=== PATIENT | female | born 1985 ===

== ENCOUNTER 2017-06-19 17:02 | Emergency (ER) | payer SELFPAY ==
[2017-06-19 18:04] VITALS: RESP 16
[2017-06-19 19:06] LABS: RBC URINE 2 /hpf (0-3); URINE BACTERIA FEW (<OCC); URINE BILIRUBIN NEGATIVE (NEGATIVE); URINE BLOOD NEGATIVE (NEGATIVE); URINE COLOR Yellow (YELLOW); URINE GLUCOSE (UA) NORMAL (Normal); URINE KETONE NEGATIVE (NEGATIVE); URINE LEUKOCYTE ESTERASE 2+ Leu/uL (Negative); URINE PROTEIN NEGATIVE (NEGATIVE); WBC URINE 31 /hpf (0-5)
--- NOTE | 2017-06-19 19:17 | C.PDOC ---
History Of Present Illness 32 year old female with Hx of asthma presents to the ED c/o CP when coughing with some clear green sputum since yesterday, patient admits to being an occasional smoker. Patient also c/o left upper back pain when coughing as well as aching epigastric pain associated with mild nausea that started yesterday. Patient's LMP was on Saturday only lasted one day, she reports using a home test that came back negative. Patient denies vomit, diarrhea, fever, SOB. Chief Complaint (Nursing): Chest Pain History Per: Patient History/Exam Limitations: no limitations Onset/Duration Of Symptoms: Days Current Symptoms Are (Timing): Still Present Quality: "Pain" Associated Symptoms: Other (Cough) Exacerbating Factors: Other (Coughing) Recent travel outside of the [place]: No Additional History Per: Patient Past Medical History Reviewed: Historical Data, Nursing Documentation, Vital Signs Vital Signs: Last Vital Signs Temp 97.3 F L 06/19/17 20:17 Pulse 83 06/19/17 20:17 Resp 16 06/19/17 20:17 BP 104/63 06/19/17 20:17 Pulse Ox 99 06/22/17 11:42 - Medical History PMH: Asthma Denies: HIV, HTN, Seizures, Sexually Transmitted Disease Surgical History: No Surg Hx Family History: States: Unknown Family Hx - Social History Hx Tobacco Use: Yes Hx Alcohol Use: Yes Hx Substance Use: No (PCP monthly) - Immunization History Hx Tetanus Toxoid Vaccination: No Hx Influenza Vaccination: No Hx Pneumococcal Vaccination: No Review Of Systems Constitutional: Negative for: Fever, Chills Cardiovascular: Positive for: Chest Pain. Negative for: Palpitations Respiratory: Positive for: Cough, Sputum (Clear, green). Negative for: Shortness of Breath Gastrointestinal: Positive for: Nausea, Abdominal Pain. Negative for: Vomiting Genitourinary: Negative for: Dysuria Musculoskeletal: Positive for: Back Pain (Left upper) Skin: Negative for: Rash Neurological: Negative for: Weakness, Numbness Physical Exam - Physical Exam Appears: Non-toxic, No Acute Distress Skin: Normal Color, Warm, Dry Head: Atraumatic, Normacephalic Nose: No Discharge Oral Mucosa: Moist Throat: Normal, No Erythema, No Exudate Neck: Supple Chest: Symmetrical Cardiovascular: Rhythm Regular, No Murmur Respiratory: Wheezing (Occasional inspiratory ) Gastrointestinal/Abdominal: Soft, Tenderness (Mild left flank, epigastric), No Distention, No Guarding, No Rebound Back: No CVA Tenderness Extremity: Normal ROM, No Deformity, No Swelling Neurological/Psych: Oriented x3, Normal Speech, Normal Cognition ED Course And Treatment - Laboratory Results Result Diagrams: 06/19/17 19:30 06/19/17 19:30 O2 Sat by Pulse Oximetry: 99 (On RA) Pulse Ox Interpretation: Normal Medical Decision Making Medical Decision Making: Plan: * Blood work ordered * UA ordered * Albuterol 2.5 mg INH given * Pepcid 20 mg IVP given * Zofran 4 mf IVP given Re-evaluation: lungs cta, on re-exam. pt now with tenderness in ruq, ultrasound ordered. pt reports she can't stay for ultrasound, signing out ama, understands risks and consequences. pt will be discharged with albuterol mdi, cipro for uti and pmd f/u Disposition Counseled Patient/Family Regarding: Studies Performed, Diagnosis, Need For Followup, Rx Given - Disposition Referrals: [facility] [Outside] [facility] [Outside] Disposition: AGAINST MEDICAL ADVICE Disposition Time: 21:43 Condition: STABLE Additional Instructions: Please follow up in medical clinic for further evaluation as soon as possible. Avoid fatty foods. USe albuterol if needed. Take antibiotics for urine infection as prescribed.. Prescriptions: Albuterol HFA [Ventolin HFA 90 mcg/actuation (8 g)] 2 puff IH Q6 #1 inhaler Ciprofloxacin HCl [Cipro] 500 mg PO BID #6 tab Instructions: Urinary Tract Infection in Women (ED), Upper Respiratory Infection (ED) Forms: General Discharge Instructions, [facility] (Sri [place]ankan), Work Excuse - Clinical Impression Clinical Impression: UTI (lower urinary tract infection), Upper respiratory infection, Abdominal pain, Left against medical advice - PA / IMPLEMENTATION ANALYST / Resident Statement MD/DO has reviewed & agrees with the documentation as recorded. - Scribe Statement The provider has reviewed the documentation as recorded by the Scribe Humble Montejo All medical record entries made by the Scribe were at my direction and personally dictated by me. I have reviewed the chart and agree that the record accurately reflects my personal performance of the history, physical exam, medical decision making, and the department course for this patient. I have also personally directed, reviewed, and agree with the discharge instructions and disposition.
[2017-06-19] MEDS ORDERED: Albuterol 0.083% Inhal Sol (2.5 mg/3 mL) UD INH STA (19:21)
[2017-06-19] MEDS ORDERED: Albuterol-Ipratrop 3 mg / 0.5 (3 ml) UD ONE (19:30)
[2017-06-19 19:41] LABS: BASO # 0.1 K/uL (0.0-0.2); EOS # 0.1 K/uL (0.0-0.7); EOS % 1.7 % (0.0-4.0); HEMATOCRIT 39.4 % (34.0-47.0); LYMPH # 2.8 K/uL (1.0-4.3); LYMPH % 33.1 % (20.0-40.0); MEAN CELL VOLUME 85.1 fL (81.0-99.0); MEAN CORPUSCULAR HEMOGLOBIN 27.7 pg (27.0-31.0); MEAN CORPUSCULAR HGB CONC 32.5 g/dL (33.0-37.0); MEAN PLATELET VOLUME 9.4 fL (7.2-11.7); MONO # 0.5 K/uL (0.0-0.8); MONO % 5.4 % (0.0-10.0); NRBC % 0.1 % (0.0-2.0); RED CELL DISTRIBUTION WIDTH 13.7 % (11.5-14.5); WHITE BLOOD COUNT 8.3 K/uL (4.8-10.8)
[2017-06-19 20:02] LABS: ALB/GLOB RATIO 1.2 (1.0-2.1); ALKALINE PHOSPHATASE 62 U/L (38-126); ALT/SGPT 31 U/L (9-52); AST/SGOT 29 U/L (14-36); BILIRUBIN,TOTAL 0.7 mg/dL (0.2-1.3); BLOOD UREA NITROGEN 14 mg/dL (7-17); CALCIUM 8.3 mg/dl (8.6-10.4); CARBON DIOXIDE 23 mmol/L (22-30); CHLORIDE 103 mmol/L (98-107); GFR AFRICAN-AMERICAN > 60; GLUCOSE,RANDOM 71 mg/dL (65-105); POTASSIUM 3.8 mmol/L (3.6-5.2); SODIUM 133 mmol/L (132-148); TOTAL PROTEIN 7.8 g/dL (6.3-8.3)
[2017-06-19 20:18] VITALS: BP 104/63; PULSE 83; TEMP 97.3
[2017-06-19 21:42] VITALS: O2SAT 99
--- NOTE | 2017-06-20 08:43 | RAD ---
HISTORY: cough wheeze and pain left upper field COMPARISON: No prior. TECHNIQUE: Chest PA and lateral FINDINGS: LUNGS: No active pulmonary disease. PLEURA: No significant pleural effusion identified. No pneumothorax apparent. CARDIOVASCULAR: Normal. OSSEOUS STRUCTURES: No significant abnormalities. VISUALIZED UPPER ABDOMEN: Normal. OTHER FINDINGS: None. IMPRESSION: No active disease.
--- NOTE | 2017-06-20 21:49 | CARD ---
APPROVED REPORT EKG Measurement Heart [id number] <Conclusion> Normal sinus rhythm with sinus arrhythmia Septal infarct, age undetermined Abnormal ECG
== END 2017-06-19 21:58 | disposition left against medical advice (07) ==
LOC: C.ER 17:02
DX: N39.0 Urinary tract infection, site not specified (principal); J06.9 Acute upper respiratory infection, unspecified; Z72.0 Tobacco use; R10.13 Epigastric pain
CPT/HCPCS: 71020; 80053; 81001; 84702; 84703; 85025; 93005; 96374; 96375; 99285; J2405

== ENCOUNTER 2017-11-08 18:19 | Observation (INO) | payer MEDICAID ==
[2017-11-08 18:42] VITALS: BMI 33.1
[2017-11-08 19:01] LABS: BASO % 0.4 % (0.0-2.0); EOS % 0.4 % (0.0-4.0); LYMPH # 2.3 K/uL (1.0-4.3); LYMPH % 22.9 % (20.0-40.0); MEAN CELL VOLUME 84.6 fL (81.0-99.0); MEAN CORPUSCULAR HGB CONC 33.1 g/dL (33.0-37.0); MEAN PLATELET VOLUME 9.6 fL (7.2-11.7); MONO # 0.5 K/uL (0.0-0.8); MONO % 5.2 % (0.0-10.0); NEUT # 7.2 K/uL (1.8-7.0); NEUT % 71.1 % (50.0-75.0); RBC 4.29 Mil/uL (3.80-5.20); RED CELL DISTRIBUTION WIDTH 13.9 % (11.5-14.5); WHITE BLOOD COUNT 10.1 K/uL (4.8-10.8)
[2017-11-08 19:10] LABS: PROTHROMBIN TIME 11.7 SECONDS (9.7-12.2)
[2017-11-08 19:15] LABS: ALBUMIN 3.9 g/dL (3.5-5.0); ALT/SGPT 16 U/L (9-52); AST/SGOT 24 U/L (14-36); BLOOD UREA NITROGEN 11 mg/dL (7-17); CALCIUM 8.9 mg/dl (8.6-10.4); GFR AFRICAN-AMERICAN > 60; GFR NON-AFRICAN AMERICAN > 60
--- NOTE | 2017-11-08 19:24 | C.PDOC ---
History Of Present Illness 32-year-old female, presents to the ED with products of conception in a jar. Patient is s/p spontaneous miscarriage of 12 week . On arrival, pelvic exam shows blood and clots, which were removed with forceps. Case immediately discussed with OB on-call, Dr. Palacio. Time Seen by Provider: 11/08/17 18:40 Chief Complaint (Nursing): Female Genitourinary History Per: Patient History/Exam Limitations: no limitations Onset/Duration Of Symptoms: Hrs Current Symptoms Are (Timing): Still Present Abnormal Vaginal Bleeding: Yes : 2 Para: 1 Past Medical History Reviewed: Historical Data, Nursing Documentation, Vital Signs Vital Signs: Last Vital Signs Temp 97.6 F 11/08/17 20:21 Pulse 88 11/08/17 21:12 Resp 24 11/08/17 21:12 BP 100/54 L 11/08/17 21:12 Pulse Ox 100 11/08/17 21:33 - Medical History PMH: Asthma Denies: HIV, HTN, Seizures, Sexually Transmitted Disease Other Surgeries: DNC Family History: States: Unknown Family Hx - Social History Hx Tobacco Use: Yes Hx Alcohol Use: No Hx Substance Use: No (PCP monthly) - Immunization History Hx Tetanus Toxoid Vaccination: No Hx Influenza Vaccination: No Hx Pneumococcal Vaccination: No Review Of Systems Except As Marked, All Systems Reviewed And Found Negative. Cardiovascular: Negative for: Chest Pain Respiratory: Negative for: Shortness of Breath Gastrointestinal: Positive for: Abdominal Pain Genitourinary: Positive for: Vaginal Bleeding Physical Exam - Physical Exam Appears: In Acute Distress (mild distress), Other (Obese female) Skin: Warm, Dry Head: Atraumatic, Normacephalic Eye(s): bilateral: PERRL, EOMI Nose: Normal Oral Mucosa: Moist Neck: Normal ROM Chest: Symmetrical Cardiovascular: Rhythm Regular, No Murmur Respiratory: Normal Breath Sounds, No Rales, No Rhonchi, No Wheezing Gastrointestinal/Abdominal: Soft, No Tenderness, No Distention Pelvic: Vaginal Bleeding (with clots) Extremity: Bilateral: Atraumatic, Normal Color And Temperature Neurological/Psych: Oriented x3, Normal Speech ED Course And Treatment - Laboratory Results Result Diagrams: 11/08/17 18:56 11/08/17 18:56 Lab Interpretation: Normal (QHCG 94,418 H, O+,) O2 Sat by Pulse Oximetry: 100 (RA) Pulse Ox Interpretation: Normal - CT Scan/US Transvag US Other Rad Studies (CT/US): Read By Radiologist, Radiology Report Reviewed CT/US Interpretation: IMPRESSION: Abnormally thickened and vascularized endometrium. In the clinical setting of recent /miscarriage, this indicates retained products of conception. 2. Complex follicle in the right ovary may represent a corpus luteum cyst. No suspicious features. Reevaluation Time: 21:34 Reassessment Condition: Improved - Physician Consult Information Outcome Of Conversation: 1844, 2129, d/w Dr. Palacio, [employer] Guide Escort, much appreciated immediate ED assistance, and pelvic exam. pt stabilized and vag bleeding improved. OK to Tele Obs. Plan repeat CBC (suspect dilutional anemia) . 2nd miscarraige in 2nd trimester suspicious for underlying pathology, consider high-risk OB w/u for future pregnancies. Critical Care Time - Critical Care Note Total Time (in mins): 90 Documented critical care: time excludes all time spent performing seperately billable procedures. Medical Decision Making Medical Decision Making: Impression: Spontaneous miscarriage Ordered labs and transvaginal ultrasound. Patient became acutely hypotensive in the ER, and received 4L of NS On further discussion, patient is with 1 prior miscarriage, that occurred at approximately 20 weeks. She has an 11 y/o child at home. Disposition Doctor Will See Patient In The: Hospital Counseled Patient/Family Regarding: Studies Performed, Diagnosis - Disposition Disposition: HOSPITALIZED Disposition Time: 21:36 Condition: GOOD Forms: [facility] (Albanian) - Clinical Impression Clinical Impression: Spontaneous - Scribe Statement The provider has reviewed the documentation as recorded by the Scribe (Radha Juarez) Provider Attestation: All medical record entries made by the Scribe were at my direction and personally dictated by me. I have reviewed the chart and agree that the record accurately reflects my personal performance of the history, physical exam, medical decision making, and the department course for this patient. I have also personally directed, reviewed, and agree with the discharge instructions and disposition.
[2017-11-08] MEDS ORDERED: Sodium Chloride 0.9% 1,000 ML IV ONE ×4 (20:08→20:38)
--- NOTE | 2017-11-08 21:02 | US ---
EXAM: US Pelvis Complete, Transabdominal CLINICAL HISTORY: 32 years old, female; Signs and symptoms; Other: Vag bleed; Additional info: Passed poc @ 12 weeks, ? retained poc TECHNIQUE: Real-time transabdominal pelvic ultrasound (complete) with image documentation. COMPARISON: No relevant prior studies available. FINDINGS: Uterus/cervix: The uterus measures 12.6 x 7.4 x 7.6 cm. Endometrial stripe measures 3 cm. Endometrial stripe is heterogeneous Right ovary: The right ovary measures 3.7 x 3.6 x 3.8 cm and contains a complex follicle measuring 2.7 cm in maximum diameter. Blood flow is seen in the right ovary on pulsed Doppler examination. Left ovary: The left ovary measures 3.2 x 1.6 x 2.5 cm. Blood flow is seen in the left ovary on pulsed Doppler examination. Free fluid: No free fluid. Bladder: Unremarkable as visualized. Wall is normal thickness for degree of distention. IMPRESSION: Abnormally thickened endometrial stripe. In the clinical setting of a recent /miscarriage, retained products of conception should be considered. EXAM: US Pelvis, Transvaginal EXAM DATE/TIME: Exam ordered 11/08/2017 6:41 PM CLINICAL HISTORY: 32 years old, female; Signs and symptoms; Other: Vag bleed; Additional info: Passed poc @ 12 weeks, ? retained poc TECHNIQUE: Real-time transvaginal pelvic ultrasound (complete) with image documentation. Transvaginal imaging was used for better evaluation of the endometrium and adnexa. COMPARISON: PELVIS/TRANSVAG US 2015-10-02 20:21 FINDINGS: Uterus/cervix: Endometrial stripe is heterogeneous in appearance and measures 4.1 cm in thickness. A small amount of fluid is noted in the endocervical canal. No myometrial mass. Right ovary: The right ovary measures 5.3 x 3.2 x 3.7 cm and contains a complex follicle measuring 3.6 cm in maximum diameter. Blood flow is seen in the right ovary on color Doppler examination. Left ovary: The left ovary measures 3.1 x 1.6 x 2.8 cm. Blood flow is seen in the left ovary on color Doppler and pulse Doppler examination. Free fluid: No free fluid. Bladder: Empty bladder which cannot be evaluated with this probe. Vasculature: Abnormal vascularity is noted within the thickened and endometrium on color Doppler examination. IMPRESSION: Abnormally thickened and vascularized endometrium. In the clinical setting of recent /miscarriage, this indicates retained products of conception. 2. Complex follicle in the right ovary may represent a corpus luteum cyst. No suspicious features.
[2017-11-08 23:48] VITALS: RESP 20
[2017-11-09 01:28] LABS: HCG,QUALITATIVE URINE POSITIVE (NEGATIVE)
[2017-11-09 01:33] LABS: URINE BILIRUBIN NEGATIVE (NEGATIVE); URINE BLOOD 3+ (NEGATIVE); URINE CLARITY Hazy (Clear); URINE COLOR Red (YELLOW); URINE GLUCOSE (UA) NORMAL (Normal); URINE LEUKOCYTE ESTERASE 1+ Leu/uL (Negative); URINE PROTEIN 2+ mg/dL (NEGATIVE); URINE UROBILINOGEN NORMAL mg/dL (0.2-1.0)
[2017-11-09 06:37] LABS: BASO % 0.5 % (0.0-2.0); EOS # 0.1 K/uL (0.0-0.7); EOS % 1.4 % (0.0-4.0); LYMPH # 2.3 K/uL (1.0-4.3); LYMPH % 34.1 % (20.0-40.0); MEAN CELL VOLUME 84.7 fL (81.0-99.0); MEAN CORPUSCULAR HEMOGLOBIN 28.7 pg (27.0-31.0); MEAN CORPUSCULAR HGB CONC 33.9 g/dL (33.0-37.0); MEAN PLATELET VOLUME 9.6 fL (7.2-11.7); MONO # 0.5 K/uL (0.0-0.8); MONO % 6.8 % (0.0-10.0); NEUT # 3.8 K/uL (1.8-7.0); NEUT % 57.2 % (50.0-75.0); RBC 3.4 Mil/uL (3.80-5.20); RED CELL DISTRIBUTION WIDTH 13.6 % (11.5-14.5); WHITE BLOOD COUNT 6.7 K/uL (4.8-10.8)
[2017-11-09 06:49] LABS: HEMOGLOBIN 9.8 g/dL (11.0-16.0)
--- NOTE | 2017-11-09 07:35 | CP.PCM.CON ---
History of Present Illness - History of Present Illness History of Present Illness: Late Entry: Pt seen in Ed on 11/08/17 when conslt requested for inevitable ab w / bleeding @12 presented to Ed w/ c/o vaginal bleeding. She states 1mo ago us showed an 8wk . She c/o heavy bleeding and painful cramps. POBHX: x1; sp AB x1 ~12wks PMHX: asthma SHX: + tobacco use intermittent- not when learned of preg +etoh 1x/wk not when learned of preg; h/o eval for etoh here in past denies illicit drug use Medic: PNV; ALBUTEROL Review of Systems - Cardiovascular Cardiovascular: Rapid Heart Rate, Slow Heart Rate. absent: Chest Pain, Dyspnea , Dyspnea on Exertion, Lightheadedness, Palpitations - Respiratory Respiratory: absent: Cough, Pain on Inspiration - Gastrointestinal Gastrointestinal: absent: Abdominal Pain, Vomiting - Genitourinary Genitourinary: absent: Change in Urinary Stream, Dysuria - Reproductive: Female Reproductive:Female: Pelvic Pain (due to uterine cramps). absent: Vaginal Pruritis - Musculoskeletal Musculoskeletal: absent: Abnormal Gait - Hematologic/Lymphatic Hematologic: absent: Easy Bleeding Past Patient History - Past Medical History & Family History Past Medical History?: Yes - Past Social History Smoking Status: Former Smoker Chewing Tobacco Use: No - CARDIAC Hx Cardiac Disorders: No Hx Hypertension: No - PULMONARY Hx Asthma: Yes - NEUROLOGICAL Hx Neurological Disorder: No Hx Seizures: No - HEMATOLOGICAL/ONCOLOGICAL Hx Human Immunodeficiency Virus (HIV): No - GENITOURINARY/GYNECOLOGICAL Hx Sexually Transmitted Disorders: No - PSYCHIATRIC Hx Substance Use: No (PCP monthly) - SURGICAL HISTORY Hx Surgeries: Yes Hx Dilation and Curettage: Yes - ANESTHESIA Hx Anesthesia: Yes Hx Anesthesia Reactions: No Meds Allergies/Adverse Reactions: Allergies Allergy/AdvReac Type Severity Reaction Status Date / Time Penicillins Allergy Verified 11/08/17 18:40 - Medications Medications: Current Medications Acetaminophen (Tylenol 325mg Tab) 650 mg PO Q6 PRN PRN Reason: Pain, Mild (1-3) Ibuprofen (Motrin Tab) 600 mg PO TID PRN PRN Reason: Pain, moderate (4-7) Physical Exam - Constitutional Appears: Non-toxic, In Acute Distress - Head Exam Head Exam: ATRAUMATIC, NORMAL INSPECTION, NORMOCEPHALIC - Respiratory Exam Respiratory Exam: NORMAL BREATHING PATTERN - GI/Abdominal Exam GI & Abdominal Exam: Soft. absent: Guarding, Rebound, Rigid, Tenderness - Exam External exam: NORMAL EXTERNAL EXAM Speculum exam: Tissue (note: nurse showed me fetus which pt passed earlier in ED - fetus intake ~12wk size; clots per cervical os removed with ring forceps, + membranous tissue removed alogn w/ clot. no active bleeding after clot removed.) . absent: NORMAL SPECULUM EXAM (+CLOT) Bimanual exam: Uterine Enlargement. absent: Adenexal Mass ( +blood clot at os removed with ring forceps w/ membranous tissue; after removed no further bleeding), Cervical Motion Tendernes - Neurological Exam Neurological exam: Oriented x3 - Psychiatric Exam Psychiatric exam: Normal Affect, Normal Mood Results - Vital Signs Recent Vital Signs: Last Vital Signs Temp 97.8 F 11/09/17 04:05 Pulse 94 H 11/09/17 04:05 Resp 20 11/09/17 04:05 BP 106/62 11/09/17 04:05 Pulse Ox 97 11/09/17 04:55 - Labs Result Diagrams: 11/09/17 06:30 11/08/17 18:56 Labs: Laboratory Results - last 24 hr 11/08/17 11/08/17 11/08/17 18:56 18:56 18:56 WBC 10.1 RBC 4.29 Hgb 12.0 Hct 36.3 MCV 84.6 MCH 28.0 MCHC 33.1 RDW 13.9 Plt Count 251 MPV 9.6 Neut % (Auto) 71.1 Lymph % (Auto) 22.9 [place] % (Auto) 5.2 Eos % (Auto) 0.4 Baso % (Auto) 0.4 Neut # (Auto) 7.2 H Lymph # (Auto) 2.3 [place] # (Auto) 0.5 Eos # (Auto) 0.0 Baso # (Auto) 0.0 PT 11.7 INR 1.0 APTT 28 Sodium 136 Potassium 3.5 L Chloride 103 Carbon Dioxide 18 L Anion Gap 18 BUN 11 Creatinine 0.5 L Est GFR ( Amer) > 60 Est GFR (Non-Af Amer) > 60 Random Glucose 108 H Calcium 8.9 Total Bilirubin 0.3 AST 24 ALT 16 Alkaline Phosphatase 51 Total Protein 7.8 Albumin 3.9 Globulin 4.0 H Albumin/Globulin Ratio 1.0 Beta HCG, Quant 87238.00 Urine Color Urine Clarity Urine pH Ur Specific [place] Urine Protein Urine Glucose (UA) Urine Ketones Urine Blood Urine Nitrate Urine Bilirubin Urine Urobilinogen Ur Leukocyte Esterase Urine WBC (Auto) Urine RBC (Auto) Urine HCG, Qual Blood Type Antibody Screen 11/08/17 11/09/17 11/09/17 20:37 01:26 06:30 WBC 6.7 RBC 3.40 L Hgb 9.8 L D Hct 28.8 L MCV 84.7 MCH 28.7 MCHC 33.9 RDW 13.6 Plt Count 195 MPV 9.6 Neut % (Auto) 57.2 Lymph % (Auto) 34.1 [place] % (Auto) 6.8 Eos % (Auto) 1.4 Baso % (Auto) 0.5 Neut # (Auto) 3.8 Lymph # (Auto) 2.3 [place] # (Auto) 0.5 Eos # (Auto) 0.1 Baso # (Auto) 0.0 PT INR APTT Sodium Potassium Chloride Carbon Dioxide Anion Gap BUN Creatinine Est GFR ( Amer) Est GFR (Non-Af Amer) Random Glucose Calcium Total Bilirubin AST ALT Alkaline Phosphatase Total Protein Albumin Globulin Albumin/Globulin Ratio Beta HCG, Quant Urine Color Red Urine Clarity Hazy Urine pH 6.0 Ur Specific [place] 1.014 Urine Protein 2+ H Urine Glucose (UA) Normal Urine Ketones Negative Urine Blood 3+ H Urine Nitrate Negative Urine Bilirubin Negative Urine Urobilinogen Normal Ur Leukocyte Esterase 1+ H Urine WBC (Auto) 49 H Urine RBC (Auto) 4548 H Urine HCG, Qual Positive Blood Type O POSITIVE Antibody Screen Negative Assessment & Plan - Assessment and Plan (Free Text) Assessment: Impression: Complete RH+ P: pelvic us addendum: pt revisited in ED after pelvic us- she states she had one episode of heavy bleeding following pelvic us and since then.bleeding has decreased and pain subsided. she will be admitted for overnight observation
--- NOTE | 2017-11-09 08:09 | CP.PCM.PN ---
Subjective - Date & Time of Evaluation Date of Evaluation: 11/09/17 Time of Evaluation: 05:30 - Subjective Subjective: s: states last episode of bleeding was last night about 23:00. she states this episode was smaller in quantity than prior episode and assoc w/ decreased pain. she denies bleeding since then Objective - Vital Signs/Intake and Output Vital Signs (last 24 hours): Temp Pulse Resp BP Pulse Ox 97.8 F 94 H 20 106/62 97 11/09/17 04:05 11/09/17 04:05 11/09/17 04:05 11/09/17 04:05 11/09/17 04:55 - Medications Medications: Current Medications Acetaminophen (Tylenol 325mg Tab) 650 mg PO Q6 PRN PRN Reason: Pain, Mild (1-3) Ibuprofen (Motrin Tab) 600 mg PO TID PRN PRN Reason: Pain, moderate (4-7) - Labs Labs: 11/09/17 06:30 11/08/17 18:56 PT 11.7 SECONDS (9.7-12.2) 11/08/17 18:56 INR 1.0 11/08/17 18:56 APTT 28 SECONDS (21-34) 11/08/17 18:56 - Head Exam Head Exam: ATRAUMATIC, NORMOCEPHALIC - Respiratory Exam Respiratory Exam: NORMAL BREATHING PATTERN - GI/Abdominal Exam GI & Abdominal Exam: Soft. absent: Guarding, Tenderness Assessment and Plan - Assessment and Plan (Free Text) Assessment: Impression: Complete Plan: cbc pending ambulate pt state w/ prior sp ab she was advised was complete and was not. for f/u pelvic us today. pt will be signed off to dr ladd.
--- NOTE | 2017-11-09 14:00 | US ---
HISTORY: spontaneous COMPARISON: TV/TA pelvic ultrasound 11/08/2017. . TECHNIQUE: Transvaginal ultrasonography of the pelvis was performed with longitudinal and transverse projections submitted. Color Doppler technique was also utilized. Correlation is made with prior transvaginal and transabdominal pelvic ultrasonography 11/08/2017. FINDINGS: UTERUS: Measures 12.0 x 7.6 x 9.4 cm. Uterus identified anteverted without interval suspicious myometrial changes overall. ENDOMETRIUM: Measures 43.0 mm in diameter. Endometrial echo pattern remains predominantly echogenic with mild to moderate heterogeneity. Gross thickening persists in this patient with prior spontaneous approximate 12 weeks previously. Overall thickness is unchanged as prior measurement was 41.0 mm. The overall pattern remains suggestive of retained products of conception and further clinical correlation is recommended. CERVIX: No cervical abnormality identified. RIGHT OVARY: Measures 4.5 x 3.1 x 3.8 cm. No solid mass. Normal flow. A minimally complex right ovarian cyst measures 3.6 x 2.8 x 3.0 cm LEFT OVARY: Measures 3.1 x 1.3 x 2.8 cm. No solid mass. Normal flow. FREE FLUID: No significant free fluid noted. OTHER FINDINGS: None. IMPRESSION: 1. Persistent marked endometrial thickening up to 43.0 mm identified again suggesting retained products of conception. No signal change in the appearance. 2. Stable small minimally complex cyst right ovary 3.6 cm.
[2017-11-09 17:49] VITALS: BP 100/64; PULSE 85; TEMP 98.7; O2SAT 100
== END 2017-11-09 18:40 | disposition left against medical advice (07) ==
LOC: C.ER 18:19 → C.9E 21:32 → C.6T 22:19
PROVIDERS: ADMIT Obstetrics & Gynecology; ATTEND Obstetrics & Gynecology
DX: O03.89 Complete or unspecified spontaneous abortion with other complications (principal); I95.9 Hypotension, unspecified; J45.909 Unspecified asthma, uncomplicated; Z88.0 Allergy status to penicillin; Z87.891 Personal history of nicotine dependence
CPT/HCPCS: 36415; 76830; 76856; 80053; 81001; 84702; 84703; 85025; 85610; 85730; 86850; 86900; 88305; 96360; 96361; 99285; G0378; J7040

== ENCOUNTER 2017-11-21 19:03 | Inpatient (IN) | payer MEDICAID, OTHER ==
[2017-11-21 19:03] VITALS: BMI 33.1
--- NOTE | 2017-11-21 19:39 | C.PDOC ---
History Of Present Illness 32 year old female presents to the ER with a complaint of fever, chills, and vaginal bleeding, associated with suprapubic discomfort and generalized aching. Patient had a miscarriage on 11/08/17, she was observed and had an US done that showed no IUP and questionable retained products of conception. Denies nausea or vomiting. Time Seen by Provider: 11/21/17 19:38 Chief Complaint (Nursing): Fever History Per: Patient History/Exam Limitations: no limitations Onset/Duration Of Symptoms: Days Current Symptoms Are (Timing): Still Present Location Of Pain: None Sick Contacts (Context): None Associated Symptoms: Fever, Chills, Myalgias, Other (Vaginal bleeding). denies : Nausea, Vomiting Ear Symptoms: Bilateral: None Severity: Moderate Pain Scale Rating Of: 5 Recent travel outside of the [place]: No Additional History Per: Patient Past Medical History Reviewed: Historical Data, Nursing Documentation, Vital Signs Vital Signs: Last Vital Signs Temp 102.9 F H 11/21/17 19:20 Pulse 120 H 11/21/17 19:20 Resp 20 11/21/17 19:20 BP 114/76 11/21/17 19:20 Pulse Ox 96 11/21/17 20:08 - Medical History PMH: Asthma Family History: States: No Known Family Hx - Social History Hx Tobacco Use: Yes Hx Alcohol Use: No Hx Substance Use: No (PCP monthly) - Immunization History Hx Tetanus Toxoid Vaccination: No Hx Influenza Vaccination: No Hx Pneumococcal Vaccination: No Review Of Systems Constitutional: Positive for: Fever, Chills Cardiovascular: Negative for: Chest Pain Respiratory: Negative for: Shortness of Breath Gastrointestinal: Positive for: Abdominal Pain. Negative for: Nausea, Vomiting Genitourinary: Positive for: Vaginal Bleeding Musculoskeletal: Positive for: Other (Generalized body aches) Skin: Negative for: Rash Neurological: Negative for: Weakness Psych: Negative for: Anxiety Physical Exam - Physical Exam Appears: Non-toxic Skin: Warm, Dry Head: Normacephalic Eye(s): bilateral: Normal Inspection Oral Mucosa: Moist Neck: Supple Chest: Symmetrical, No Tenderness Cardiovascular: Rhythm Regular Respiratory: No Rales, No Rhonchi, No Wheezing Gastrointestinal/Abdominal: Soft, Tenderness (suprapubic), No Guarding, No Rebound Back: Normal Inspection Extremity: Normal ROM Extremity: Bilateral: Atraumatic Neurological/Psych: Oriented x3 Gait: Steady ED Course And Treatment - Laboratory Results Result Diagrams: 11/21/17 19:52 11/21/17 19:52 O2 Sat by Pulse Oximetry: 96 (room air) Pulse Ox Interpretation: Normal Progress Note: Blood work and pelvic US ordered. Gentamicin, vancomycin, and IV fluids administered. Disposition Discussed With Dr.: Deidra Street Comment: accepted the pt onher service and took over the care at 10:45 PM Doctor Will See Patient In The: ED Counseled Patient/Family Regarding: Studies Performed, Diagnosis - Disposition Disposition: HOSPITALIZED Disposition Time: 19:38 Condition: FAIR Forms: [employer] (Maori) - Clinical Impression Clinical Impression: Fever, Retained products of conception - Scribe Statement The provider has reviewed the documentation as recorded by the Scribe Chuy Patel All medical record entries made by the Scribe were at my direction and personally dictated by me. I have reviewed the chart and agree that the record accurately reflects my personal performance of the history, physical exam, medical decision making, and the department course for this patient. I have also personally directed, reviewed, and agree with the discharge instructions and disposition. Decision To Admit - Pt Status Changed To: Hospital Disposition Of: Inpatient - Admit Certification Admit to Inpatient:: After my assessment, the patient will require hospitalization for at least two midnights. This is because of the severity of symptoms shown, intensity of services needed, and/or the medical risk in this patient being treated as an outpatient. - InPatient: Physician Admission Certification:: After my assessment, the patient will require hospitalization for at least two midnights. This is because of the severity of symptoms shown, intensity of services needed, and/or the medical risk in this patient being treated as an outpatient. - . Bed Request Type: Regular Admitting Physician: Deidra Street Patient Diagnosis: Fever, Retained products of conception
[2017-11-21] MEDS ORDERED: Sodium Chloride 0.9% 2,000 ML IV ONE (19:41)
[2017-11-21] MEDS ORDERED: Gentamicin 80 mg/2mL Inj. IVPB STA (19:59)
[2017-11-21] MEDS ORDERED: Vancomycin 1 GM 1 GM/250 ML BAG IVPB SCH (20:00)
[2017-11-21 20:01] LABS: BASO % 0.3 % (0.0-2.0); HEMOGLOBIN 10.5 g/dL (11.0-16.0); LYMPH # 0.7 K/uL (1.0-4.3); LYMPH % 10.8 % (20.0-40.0); MEAN CELL VOLUME 82.9 fL (81.0-99.0); MEAN CORPUSCULAR HEMOGLOBIN 28.2 pg (27.0-31.0); MEAN PLATELET VOLUME 9.3 fL (7.2-11.7); MONO # 0.3 K/uL (0.0-0.8); MONO % 4.9 % (0.0-10.0); NEUT # 5.7 K/uL (1.8-7.0); RBC 3.71 Mil/uL (3.80-5.20); WHITE BLOOD COUNT 6.8 K/uL (4.8-10.8)
[2017-11-21 20:09] LABS: INR 1.3; PROTHROMBIN TIME 14.3 SECONDS (9.7-12.2)
[2017-11-21 20:15] LABS: VENOUS BLOOD GAS BASE EXCESS -1.5 mmol/L (0.0-2.0); VENOUS BLOOD GAS PCO2 30 mmHg (40-60); VENOUS BLOOD GAS PO2 40 mm/Hg (30-55); VENOUS BLOOD PH 7.46 (7.32-7.43)
[2017-11-21 20:16] LABS: ALBUMIN 3.6 g/dL (3.5-5.0); ALT/SGPT 15 U/L (9-52); AST/SGOT 17 U/L (14-36); BLOOD UREA NITROGEN 7 mg/dL (7-17); CALCIUM 8.7 mg/dl (8.6-10.4); GFR AFRICAN-AMERICAN > 60; GFR NON-AFRICAN AMERICAN > 60
[2017-11-21] MEDS ORDERED: Vancomycin 1 gm/NS 200 ml 1 GM/200 ML BAG IVPB SCH (21:00)
--- NOTE | 2017-11-21 22:34 | US ---
EXAM: US Pelvis Complete, Transabdominal US Pelvis, Transvaginal US Duplex Arterial/Venous of the Pelvis, Complete EXAM DATE/TIME: 11/21/2017 7:41 PM CLINICAL HISTORY: 32 years old, female; Signs and symptoms; Other: Fever / bleeding; Additional info: Fever, retained poc seen on prior study; beta hCG of 5719.70 TECHNIQUE: Real-time transabdominal and transvaginal pelvic ultrasound (complete) with image documentation. Transvaginal imaging was used for better evaluation of the endometrium and adnexa. Real-time duplex ultrasound scan of the arterial and venous flow of the pelvis with color Doppler flow and spectral waveform analysis. COMPARISON: US - TRANSVAGINAL 2017-11-09 10:58 FINDINGS: Uterus/cervix: Uterus is anteflexed. Uterus measures approximately 14 x 6 x 8.4 cm. cervix measures approximately 4 cm in length. Endometrium is thickened and heterogeneous in appearance. Endometrium measures approximately 5 cm on transvaginal imaging. There is color flow in the thickened endometrium. No myometrial mass. Right ovary: Right ovary measures approximately 4.2 x 2.8 x 3.4 cm. There is a complex/septated cyst, 3 x 2.4 x 2.5 cm.There is expected blood flow on Doppler imaging Left ovary: Left ovary measures approximately 3.3 x 1.8 x 2.8 cm.There is expected blood flow on Doppler imaging Free fluid: No free fluid. Bladder: Bladder is partially distended. IMPRESSION: Thickened heterogeneous endometrium with color flow consistent with retained products of conception; complex right ovarian cyst
[2017-11-22] MEDS ORDERED: Potassium Chloride 20 MEQ in Lactated Ringer's 1,000 ML IV SCH ×2 (02:45→03:30)
[2017-11-22] MEDS ORDERED: Albuterol HFA 90 mcg/actuation (8 g) INH PRN (02:50)
[2017-11-22] MEDS: Lactated Ringer's 1,000 ML IV SCH ×2 (04:18→15:28)
--- NOTE | 2017-11-22 06:55 | CP.PCM.HP ---
History of Present Illness - History of Present Illness History of Present Illness: 32 y/o s/p SAB seen in er 11/08 and passed ~ 12 week fetus. pt then signed out ama and reports feelign fine. Pt reprots onve past 1-2 day satrated to get fevers adn came to ER last night to get evlauted. pt densi any pain and reprots itnemtitent bleeding, not passign large clots pt dneis any chlls, nasue , vomitng, cp, sob, bowrl or bladder com palints. 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 ast gn visit clinie 2 years ago PMH: Ashta - well controlled , hosptializtion as child, no intubation PSH: DxC, ? Hysteroscpic myomectomy SHX: social etoh/denies tobacco/drugs MEDS: Albuterol ALLERGY: PCN Present on Admission - Present on Admission Any Indicators Present on Admission: No Review of Systems - Review of Systems Review of Systems: +fevers - Constitutional Constitutional: As Per HPI - EENT Eyes: absent: As Per HPI, Blind Spots, Blurred Vision, Change in Vision, Decreased Night Vision, Diplopia, Discharge, Dry Eye, Exophthalmos, Floaters, Irritation, Itchy Eyes, Loss of Peripheral Vision, Pain, Photophobia, Requires Corrective Lenses, Sees Flashes, Spots in Vision, Tunnel Vision, Other Visual Disturbances, Loss of Vision, Other - Cardiovascular Cardiovascular: absent: As Per HPI, Acrocyanosis, Chest Pain, Chest Pain at Rest , Chest Pain with Activity, Claudication, Diaphoresis, Dyspnea, Dyspnea on Exertion, Edema, Irregular Heart Rhythm, Pain Radiating to Arm/Neck/Jaw, Leg Edema, Leg Ulcers, Lightheadedness, Orthopnea, Palpitations, Paroxysmal Nocturnal Dyspnea, Pedal Edema, Radiating Pain, Rapid Heart Rate, Slow Heart Rate, Syncope, Other - Respiratory Respiratory: absent: As Per HPI, Cough, Dyspnea, Hemoptysis, Dyspnea on Exertion , Wheezing, Snoring, Stridor, Pain on Inspiration, Chest Congestion, Excessive Mucous Production, Change in Mucous Color, Pain with Coughing, Other - Gastrointestinal Gastrointestinal: absent: As Per HPI, Abdominal Pain, Belching, Bloating, Change in Bowel Habits, Change in Stool Character, Coffee Ground Emesis, Constipation, Cramping, Diarrhea, Dyspepsia, Dysphagia, Early Satiety, Excessive Flatus, Fecal Incontinence, Heartburn, Hematemesis, Hematochezia, Loose Stools, Melena, Nausea, Odynophagia, Temesmus, Vomiting, Other - Genitourinary Genitourinary: absent: As Per HPI, Change in Urinary Stream, Difficulty Urinating, Dysuria, Flank Pain, Hematuria, Pyuria, Nocturia, Urinary Incontinence, Urinary Frequency, Urinary Hesitance, Urinary Urgency, Voiding Freq/Small Amts, Freq UTI, Hx Renal/Bladder Calculi, Hx /Renal Surgery, Bladder Distension, Other - Menstruation Menstruation: absent: As Per HPI, Amenorrhea, Amenorrhea/ Control, Currently Menstual, Cycle <21 Days, Cycle >35 Days, Cycle Variable, Menses 1-7 Days, Menses >/= 8 Days, Menses Variable, Cycle > 4 Weeks Between, No Menses for 6 Months, Heavy Menses, Light Menses, Normal Menses, Spotting Between Cycles , S/P Hysterectomy, Menopausal, Post Menopausal, Premenarche, Abnormal Vaginal Bleeding, Dysmenorrhea, Other - Musculoskeletal Musculoskeletal: absent: As Per HPI, Abnormal Gait, Arthralgias, Atrophy, Back Pain, Deformity, Joint Swelling, Limited Range of Motion, Loss of Height, Muscle Cramps, Muscle Weakness, Myalgias, Neck Pain, Numbness, Radiating Pain into Limb, Stiffness, Tingling, Other - Integumentary Integumentary: absent: As Per HPI, Acne, Alopecia, Bleeding Lesions, Change in Hair, Change in Nails, Change in Pigmentation, Changing Lesions, Dry Skin, Erythema, Furuncle, Hirsutism, Lesions, New Lesions, Non-Healing Lesions, Photosensitivity, Pruritus, Rash, Skin Pain, Skin Ulcer, Sores, Striae, Swelling , Unusual Bruising, Wounds, Jaundice, Other - Neurological Neurological: absent: As Per HPI, Abnormal Gait, Abnormal Hearing, Abnormal Movements, Abnormal Speech, Behavioral Changes, Burning Sensations, Confusion, Convulsions, Disequilibrium, Dizziness, Numbness, Focal Weakness, Frequent Falls , Headaches, Lack of Coordination, Loss of Vision, Memory Loss, Paresthesias, Radicular Pain, Restless Legs, Sensory Deficit, Syncope, Tingling, Tremor, Vertigo, Weakness, Other Visual Disturbances, Other Past Patient History - Infectious Disease Hx of Infectious Diseases: None - Past Medical History & Family History Past Medical History?: Yes - Past Social History Smoking Status: Former Smoker - CARDIAC Hx Hypertension: No - PULMONARY Hx Asthma: Yes - NEUROLOGICAL Hx Seizures: No - HEMATOLOGICAL/ONCOLOGICAL Hx Human Immunodeficiency Virus (HIV): No - MUSCULOSKELETAL/RHEUMATOLOGICAL Hx Falls: No - GENITOURINARY/GYNECOLOGICAL Hx Sexually Transmitted Disorders: No - PSYCHIATRIC Hx Substance Use: No (PCP monthly) - SURGICAL HISTORY Hx Surgeries: Yes Hx Dilation and Curettage: Yes - ANESTHESIA Hx Anesthesia: Yes Hx Anesthesia Reactions: No Meds Allergies/Adverse Reactions: Allergies Allergy/AdvReac Type Severity Reaction Status Date / Time Penicillins Allergy Verified 11/08/17 18:40 Physical Exam - Constitutional Appears: Well, Non-toxic - Head Exam Head Exam: ATRAUMATIC, NORMAL INSPECTION - Eye Exam Eye Exam: EOMI, Normal appearance - ENT Exam ENT Exam: Mucous Membranes Moist, Normal Exam - Respiratory Exam Respiratory Exam: Clear to Auscultation Bilateral, NORMAL BREATHING PATTERN - Cardiovascular Exam Cardiovascular Exam: +S1, +S2 - GI/Abdominal Exam GI & Abdominal Exam: Normal Bowel Sounds, Soft Additional comments: non tender, no gouradin, no rebound tendner, no rigidity - Exam Additional comments: Extenral gential grossly honorio Vaginal discharge, lbood Cervix 1cm uteurs; mildly ttp adnex;a onte dner Results - Vital Signs Recent Vital Signs: Last Vital Signs Temp 98.4 F 11/22/17 01:27 Pulse 106 H 11/22/17 01:27 Resp 18 11/22/17 01:27 BP 104/60 11/22/17 01:27 Pulse Ox 100 11/22/17 01:27 - Labs Result Diagrams: 11/21/17 19:52 11/21/17 19:52 Labs: Laboratory Results - last 24 hr 11/21/17 11/21/17 11/21/17 19:52 19:52 19:52 WBC 6.8 RBC 3.71 L Hgb 10.5 L Hct 30.8 L MCV 82.9 MCH 28.2 MCHC 34.0 RDW 13.0 Plt Count 221 MPV 9.3 Neut % (Auto) 84.0 H Lymph % (Auto) 10.8 L Aurora % (Auto) 4.9 Eos % (Auto) 0.0 Baso % (Auto) 0.3 Neut # (Auto) 5.7 Lymph # (Auto) 0.7 L Aurora # (Auto) 0.3 Eos # (Auto) 0.0 Baso # (Auto) 0.0 PT 14.3 H INR 1.3 APTT 31 pO2 VBG pH VBG pCO2 VBG HCO3 VBG Total CO2 VBG O2 Sat (Calc) VBG Base Excess VBG Potassium Glucose Lactate Sodium 135 Potassium 3.0 L Chloride 101 Carbon Dioxide 22 Anion Gap 15 BUN 7 Creatinine 0.6 L Est GFR ( Amer) > 60 Est GFR (Non-Af Amer) > 60 Random Glucose 100 Calcium 8.7 Total Bilirubin 0.5 AST 17 ALT 15 Alkaline Phosphatase 72 Total Protein 7.4 Albumin 3.6 Globulin 3.8 Albumin/Globulin Ratio 1.0 Beta HCG, Quant 5719.70 Venous Blood Potassium Blood Type Antibody Screen 11/21/17 11/21/17 19:52 20:05 WBC RBC Hgb Hct MCV MCH MCHC RDW Plt Count MPV Neut % (Auto) Lymph % (Auto) Aurora % (Auto) Eos % (Auto) Baso % (Auto) Neut # (Auto) Lymph # (Auto) Aurora # (Auto) Eos # (Auto) Baso # (Auto) PT INR APTT pO2 40 VBG pH 7.46 H VBG pCO2 30 L VBG HCO3 23.2 VBG Total CO2 22.2 VBG O2 Sat (Calc) 78.8 H VBG Base Excess -1.5 L VBG Potassium 2.7 L Glucose 90 Lactate 0.9 Sodium 135.0 Potassium Chloride 102.0 Carbon Dioxide Anion Gap BUN Creatinine Est GFR ( Amer) Est GFR (Non-Af Amer) Random Glucose Calcium Total Bilirubin AST ALT Alkaline Phosphatase Total Protein Albumin Globulin Albumin/Globulin Ratio Beta HCG, Quant Venous Blood Potassium 2.7 L Blood Type O POSITIVE Antibody Screen Negative - Imaging and Cardiology US - abdomen Status: Report reviewed by me Assessment & Plan (1) Sepsis due to incomplete spontaneous Assessment and Plan: 1. Admit to obs gn 2. NPO, IVF 3. IV anbitiocs Gent, clinidamyin 4. r/b/a/i of Suction DxC kary hubertn due to retrained poc/ incopmete : On coming MD with obtain consent 5. OR aware 6. Hypoklament: amy arevalo 7. AM labs 8. Tyonol prn pain, fever Status: Acute
[2017-11-22 07:16] LABS: BASO % 0.3 % (0.0-2.0); HEMOGLOBIN 10.1 g/dL (11.0-16.0); LYMPH # 0.5 K/uL (1.0-4.3); LYMPH % 11.8 % (20.0-40.0); MEAN CELL VOLUME 83.4 fL (81.0-99.0); MEAN CORPUSCULAR HEMOGLOBIN 28.8 pg (27.0-31.0); MEAN CORPUSCULAR HGB CONC 34.5 g/dL (33.0-37.0); MEAN PLATELET VOLUME 9.7 fL (7.2-11.7); MONO # 0.2 K/uL (0.0-0.8); MONO % 5.3 % (0.0-10.0); NEUT # 3.7 K/uL (1.8-7.0); NEUT % 82.6 % (50.0-75.0); RBC 3.52 Mil/uL (3.80-5.20); RED CELL DISTRIBUTION WIDTH 12.9 % (11.5-14.5); WHITE BLOOD COUNT 4.5 K/uL (4.8-10.8)
[2017-11-22 07:37] LABS: ALB/GLOB RATIO 0.9 (1.0-2.1); ALBUMIN 3.2 g/dL (3.5-5.0); ALT/SGPT 15 U/L (9-52); AST/SGOT 23 U/L (14-36); BLOOD UREA NITROGEN 4 mg/dL (7-17); CALCIUM 7.8 mg/dl (8.6-10.4); GFR AFRICAN-AMERICAN > 60; GFR NON-AFRICAN AMERICAN > 60
[2017-11-22] MEDS ORDERED: Propofol 10 mg/ml Inj (20 ML) ONE (08:26)
[2017-11-22] MEDS ORDERED: Midazolam 2 MG/2 ML VIAL ONE (08:26)
[2017-11-22] MEDS ORDERED: Silver Nitrate Topical - Stick ONE (08:59)
[2017-11-22] MEDS ORDERED: HYDROmorphone 0.5 mg/0.5 ml ISec IVP PRN (09:13)
--- NOTE | 2017-11-22 09:50 | CP.PCM.PN ---
Subjective - Date & Time of Evaluation Date of Evaluation: 11/22/17 Time of Evaluation: 07:20 - Subjective Subjective: s: no c/o PREOP NOTE: Informed consent obtained for D&C. Procedure d/w pt. Risks benefits and indications reviewed. She agrees w/ planned procedure. Objective - Vital Signs/Intake and Output Vital Signs (last 24 hours): Temp Pulse Resp BP Pulse Ox 98.1 F 83 23 106/65 99 11/22/17 09:10 11/22/17 09:10 11/22/17 09:10 11/22/17 09:10 11/22/17 09:10 Intake and Output: 11/22/17 11/22/17 06:59 18:59 Intake Total 500 600 Balance 500 600 - Medications Medications: Current Medications Albuterol (Ventolin Hfa 90 Mcg/Actuation (8 G)) 1 puff INH RQ4 PRN PRN Reason: Shortness of Breath Hydromorphone HCl (Dilaudid) 0.5 mg IVP Q15M PRN PRN Reason: Pain, moderate (4-7) Stop: 11/22/17 11:13 Vancomycin/Sodium Chloride (Vancomycin 1 Gm/Ns 200 Ml) 1 gm in 200 mls @ 166.667 mls/hr IVPB STAT TAVARES PRN Reason: Protocol Stop: 11/26/17 21:01 Last Admin: 11/21/17 20:29 Dose: 166.667 mls/hr Lactated Ringer's (Lactated Ringer's) 1,000 mls @ 100 mls/hr IV .Q10H TAVARES Last Admin: 11/22/17 04:18 Dose: 100 mls/hr Metoclopramide HCl (Reglan) 10 mg IVP ONCE PRN PRN Reason: Nausea/Vomiting Stop: 11/22/17 11:13 Morphine Sulfate (Morphine) 2 mg IVP Q6 PRN PRN Reason: Pain, moderate (4-7) Ondansetron HCl (Zofran Inj) 4 mg IVP ONCE PRN PRN Reason: Nausea/Vomiting Stop: 11/22/17 11:13 - Labs Labs: 11/22/17 06:44 11/22/17 06:44 PT 14.3 SECONDS (9.7-12.2) H 11/21/17 19:52 INR 1.3 11/21/17 19:52 APTT 31 SECONDS (21-34) 11/21/17 19:52
[2017-11-22 16:24] VITALS: BP 95/58; PULSE 64; RESP 20; O2SAT 98
[2017-11-22 20:15] VITALS: TEMP 98.3
--- NOTE | 2017-11-24 17:19 | CP.PCM.PN ---
Subjective - Date & Time of Evaluation Date of Evaluation: 11/24/17 Time of Evaluation: 17:10 - Subjective Subjective: Notified by microbiology lab at approximately 1545 hours: blood culture from 09/2017 noted for "GPC in clusters". Identification is running today; specificity to be run 11/25/17. Face Sheet printed. Patient was called at phone number on file - [phone], "the number you dialed is not in service". This is the only number on file. Patient's discharge instructions from 11/22/17 reviewed and noted for "follow up in 1 week, [facility] clinic (Dr. Atkins)". [facility] contacted at , message left for them to call and speak with Ob Hospitalist on duty Saturday11/25/17. Objective - Vital Signs/Intake and Output Vital Signs (last 24 hours): Temp Pulse Resp BP Pulse Ox 98.3 F 64 20 95/58 L 98 11/22/17 20:14 11/22/17 15:15 11/22/17 15:15 11/22/17 15:15 11/22/17 15:15 - Labs Labs: 11/22/17 06:44 11/22/17 06:44 PT 14.3 SECONDS (9.7-12.2) H 11/21/17 19:52 INR 1.3 11/21/17 19:52 APTT 31 SECONDS (21-34) 11/21/17 19:52
--- NOTE | 2017-11-25 10:12 | OP ---
DATE: 11/22/2017 PREOPERATIVE DIAGNOSIS: Retained products of conception with history of spontaneous at approximately 12 weeks. POSTOPERATIVE DIAGNOSIS: Retained products of conception with history of spontaneous at approximately 12 weeks. PROCEDURE: Dilation and suction curettage. SURGEON: Iris Palacio MD ANESTHESIA: General. ESTIMATED BLOOD LOSS: Less than 20 mL. COMPLICATIONS: None. FINDINGS: Showed a dilated cervix and retained products of conception. Uterus was midline, mobile, and anteverted to mid position. DESCRIPTION OF PROCEDURE: The patient was taken to the OR and placed and underwent her general anesthesia. She was then placed in the dorsal lithotomy position using the Yellofin stirrups. She was subsequently prepped and draped in the routine sterile fashion. An exam under anesthesia had been done prior to her prepping and draping. A weighted speculum was placed into the vagina and the anterior lip of the cervix was grasped with a single-tooth tenaculum. The cervix was dilated with the Hegar dilators to a size of 19. Of note, the cervix allowed easy entry of all the dilators. So, this was consistent with the patient probably being likely size 19 that has been introduced initially instead of the gradual cervical dilation. A size 10 suction curette was used for the procedure. The anterior lip of the cervix which had the tenaculum was regrasped for countertraction and the suction curettage advanced to the fundus. The suction was then turned on and in a rotating movement, the suction was drawn out of the uterus. This procedure was repeated multiple times. Clot and a whitish colored tissue was noted. Following the suction curettage, a sharp curettage was performed and this was followed by repeat suction curettage x1. The tenaculum was removed. Good hemostasis was noted. The patient was given 20 units of Pitocin and a liter of LR was started and the patient returned to the recovery room in satisfactory condition. Iris Palacio MD
== END 2017-11-22 21:20 | disposition home or self-care (01) | DRG 381 ==
LOC: C.ER 19:03 → C.9E 23:24 → C.3T 11-22 01:39
PROVIDERS: ADMIT Obstetrics & Gynecology; ATTEND Obstetrics & Gynecology
PROC: 10D17ZZ Extraction of Products of Conception, Retained, Via Natural or Artificial Opening (ICD-10-PCS; principal; 2017-11-21)
DX: O03.4 Incomplete spontaneous abortion without complication (principal); Z87.891 Personal history of nicotine dependence

== ENCOUNTER 2018-01-17 18:52 | Emergency (ER) | payer OTHER ==
[2018-01-17 18:52] VITALS: BMI 33.1
[2018-01-17 18:59] VITALS: TEMP 98.3
[2018-01-17] MEDS ORDERED: Sodium Chloride 0.9% 1,000 ML IV ONE (19:41)
--- NOTE | 2018-01-17 19:44 | C.PDOC ---
History Of Present Illness 33 year old female presents to the ER with a complaint of coughing and vomiting blood that began this afternoon, last episode at 15:00. Denies fever or chills. Chief Complaint (Nursing): GI Problem History Per: Patient History/Exam Limitations: no limitations Onset/Duration Of Symptoms: Hrs Current Symptoms Are (Timing): Still Present Number Of Bleeding Episodes: Unknown Amount of Blood Loss: Small Quality Of Discomfort: Unable To Describe Associated Symptoms: Vomiting (Bloody), Other (Coughing) Modifying Factors: None Recent travel outside of the [place]: No Past Medical History Reviewed: Historical Data, Nursing Documentation, Vital Signs Vital Signs: Last Vital Signs Temp 98.3 F 01/17/18 18:57 Pulse 69 01/17/18 18:57 Resp 17 01/17/18 18:57 BP 123/76 01/17/18 18:57 Pulse Ox 100 01/17/18 21:10 - Medical History PMH: Asthma - [facility] Procedures EXTRACTION OF PRODUCTS OF CONCEPTION, RETAINED, VIA OPENING (11/21/17) Family History: States: Unknown Family Hx - Social History Hx Tobacco Use: Yes Hx Alcohol Use: No Hx Substance Use: No (PCP monthly) - Immunization History Hx Tetanus Toxoid Vaccination: No Hx Influenza Vaccination: No Hx Pneumococcal Vaccination: No Review Of Systems Constitutional: Negative for: Fever, Chills Cardiovascular: Negative for: Chest Pain, Palpitations, Light Headedness Respiratory: Positive for: Cough Gastrointestinal: Positive for: Vomiting (Bloody), Abdominal Pain Neurological: Negative for: Dizziness Physical Exam - Physical Exam Appears: Non-toxic Skin: Normal Color, Warm, Dry Head: Atraumatic, Normacephalic Eye(s): bilateral: Normal Inspection Oral Mucosa: Moist Throat: Normal, No Erythema Neck: Normal, Supple Chest: Symmetrical, No Tenderness Cardiovascular: Rhythm Regular Respiratory: Normal Breath Sounds, No Rales, No Rhonchi, No Wheezing Gastrointestinal/Abdominal: Soft, Tenderness (Mild epigastric), No Guarding, No Rebound Back: No CVA Tenderness Neurological/Psych: Oriented x3, Normal Speech ED Course And Treatment - Laboratory Results Result Diagrams: 01/17/18 19:57 01/17/18 19:57 Lab Interpretation: Abnormal Interpretation Of Abnormal: UA- positive for UTI O2 Sat by Pulse Oximetry: 100 (Room air) Pulse Ox Interpretation: Normal - Radiology CXR: Interpreted by Me, Viewed By Me CXR Interpretation: Yes: No Acute Disease, Other (normal chest film). No: Infiltrates Progress Note: Blood work, CXR, and urinalysis ordered. Pepcid and IV fluids administered. Reevaluation Time: 21:09 (no episode of vomiting blood noted in the ER,) Disposition Counseled Patient/Family Regarding: Diagnosis - Disposition Referrals: [facility] [Outside] Disposition: HOME/ ROUTINE Disposition Time: 21:10 Condition: STABLE Prescriptions: Famotidine [Pepcid] 20 mg PO BID #30 tab Nitrofurantoin Macrocrystals [Macrobid] 1 cap PO BID #14 cap Instructions: Gastritis (DC), Graham Diet, Urinary Tract Infection, Adult (DC) Forms: [facility] (German) - POA Present On Arrival: None - Clinical Impression Clinical Impression: Gastritis, UTI (urinary tract infection) - Scribe Statement The provider has reviewed the documentation as recorded by the Scribe Chuy Patel All medical record entries made by the Scribe were at my direction and personally dictated by me. I have reviewed the chart and agree that the record accurately reflects my personal performance of the history, physical exam, medical decision making, and the department course for this patient. I have also personally directed, reviewed, and agree with the discharge instructions and disposition.
[2018-01-17 20:03] LABS: BASO % 0.7 % (0.0-2.0); EOS % 0.4 % (0.0-4.0); HEMOGLOBIN 11.6 g/dL (11.0-16.0); LYMPH # 2.2 K/uL (1.0-4.3); LYMPH % 29.3 % (20.0-40.0); MEAN CELL VOLUME 79.2 fL (81.0-99.0); MEAN CORPUSCULAR HEMOGLOBIN 25.7 pg (27.0-31.0); MEAN CORPUSCULAR HGB CONC 32.5 g/dL (33.0-37.0); MEAN PLATELET VOLUME 10.2 fL (7.2-11.7); MONO # 0.3 K/uL (0.0-0.8); MONO % 4.3 % (0.0-10.0); NEUT # 4.8 K/uL (1.8-7.0); NEUT % 65.3 % (50.0-75.0); NRBC % 0.1 % (0.0-2.0); RBC 4.52 Mil/uL (3.80-5.20); RED CELL DISTRIBUTION WIDTH 14.6 % (11.5-14.5); WHITE BLOOD COUNT 7.4 K/uL (4.8-10.8)
[2018-01-17 20:25] LABS: ALB/GLOB RATIO 1.2 (1.0-2.1); ALBUMIN 4.4 g/dL (3.5-5.0); ALT/SGPT 17 U/L (9-52); AST/SGOT 23 U/L (14-36); BLOOD UREA NITROGEN 12 mg/dL (7-17); CALCIUM 9.2 mg/dl (8.6-10.4); GFR AFRICAN-AMERICAN > 60; GFR NON-AFRICAN AMERICAN > 60; LIPASE 40 U/L (23-300)
[2018-01-17 20:32] LABS: D DIMER < 200 ng/mlDDU (0-243); INR 1.3; PARTIAL THROMBOPLASTIN TIME 33 SECONDS (21-34); PROTHROMBIN TIME 13.8 SECONDS (9.7-12.2)
[2018-01-17 20:57] LABS: HCG,QUALITATIVE URINE NEGATIVE (NEGATIVE)
[2018-01-17 21:03] LABS: SQUAMOUS EPITHIAL 18 /hpf (0-5); URINE BACTERIA RARE (<OCC); URINE BILIRUBIN NEGATIVE (NEGATIVE); URINE BLOOD NEGATIVE (NEGATIVE); URINE CLARITY Hazy (Clear); URINE COLOR Yellow (YELLOW); URINE GLUCOSE (UA) NORMAL (Normal); URINE LEUKOCYTE ESTERASE 3+ Leu/uL (Negative); URINE PROTEIN NEGATIVE (NEGATIVE); URINE UROBILINOGEN NORMAL mg/dL (0.2-1.0)
[2018-01-17 21:57] VITALS: BP 128/74; PULSE 84; RESP 20; O2SAT 98
--- NOTE | 2018-01-18 11:53 | RAD ---
HISTORY: Coughing blood COMPARISON: Chest 06/19/2018 the TECHNIQUE: Chest PA and lateral FINDINGS: LUNGS: No active pulmonary disease. PLEURA: No significant pleural effusion identified. No pneumothorax apparent. CARDIOVASCULAR: Normal. OSSEOUS STRUCTURES: No significant abnormalities. VISUALIZED UPPER ABDOMEN: Normal. OTHER FINDINGS: None. IMPRESSION: No active disease.
== END 2018-01-17 21:55 | disposition home or self-care (01) ==
LOC: C.ER 18:52
DX: K29.70 Gastritis, unspecified, without bleeding (principal); N39.0 Urinary tract infection, site not specified
CPT/HCPCS: 71046; 80053; 81001; 83690; 84703; 85025; 85378; 85610; 85730; 86850; 86900; 87086; 96361; 96374; 99283; J7030

== ENCOUNTER 2018-03-07 10:08 | Emergency (ER) | payer OTHER ==
[2018-03-07 10:09] VITALS: BMI 33.1
[2018-03-07 10:12] VITALS: RESP 16
[2018-03-07 10:30] LABS: HCG,QUALITATIVE URINE POSITIVE (NEGATIVE)
[2018-03-07 10:35] LABS: SQUAMOUS EPITHIAL 6 /hpf (0-5); URINE BACTERIA RARE (<OCC); URINE BILIRUBIN NEGATIVE (NEGATIVE); URINE BLOOD 1+ (NEGATIVE); URINE CLARITY Hazy (Clear); URINE COLOR Yellow (YELLOW); URINE GLUCOSE (UA) NORMAL (Normal); URINE LEUKOCYTE ESTERASE 1+ Leu/uL (Negative); URINE PROTEIN 1+ mg/dL (NEGATIVE)
--- NOTE | 2018-03-07 10:47 | C.PDOC ---
History Of Present Illness 33 year old, A1 female presents to the emergency department with complaints of spotting since this morning, associated with cramping. She states she had a positive home test. Patient reports last menstrual period was 02/07/18 that lasted 5 days. She states to have a previous surgical history of Dilation and Curettage from the miscarriage. Patient denies any fever, chills, nausea, and vomiting. Time Seen by Provider: 03/07/18 10:18 Chief Complaint (Nursing): Female Genitourinary History Per: Patient History/Exam Limitations: no limitations Onset/Duration Of Symptoms: Hrs Current Symptoms Are (Timing): Still Present Past Medical History Reviewed: Historical Data, Nursing Documentation, Vital Signs Vital Signs: Last Vital Signs Temp 98.7 F 03/07/18 13:41 Pulse 62 03/07/18 13:41 Resp 16 03/07/18 13:41 BP 117/81 03/07/18 13:41 Pulse Ox 100 03/07/18 13:45 - Medical History PMH: Asthma Other Surgeries: D&C - [facility] Procedures EXTRACTION OF PRODUCTS OF CONCEPTION, RETAINED, VIA OPENING (11/21/17) Family History: States: Unknown Family Hx - Social History Hx Tobacco Use: Yes Hx Alcohol Use: No Hx Substance Use: Yes (PCP monthly) - Immunization History Hx Tetanus Toxoid Vaccination: No Hx Influenza Vaccination: No Hx Pneumococcal Vaccination: No Review Of Systems Constitutional: Negative for: Fever, Chills Cardiovascular: Negative for: Chest Pain Respiratory: Negative for: Shortness of Breath Gastrointestinal: Positive for: Other (cramping). Negative for: Nausea, Vomiting, Diarrhea Genitourinary: Positive for: Vaginal Bleeding Neurological: Negative for: Weakness, Numbness Physical Exam - Physical Exam Appears: Well, Non-toxic, No Acute Distress Skin: Warm, Dry, No Rash Head: Atraumatic, Normacephalic Eye(s): bilateral: Normal Inspection, EOMI Oral Mucosa: Moist Neck: Normal ROM Chest: Symmetrical Cardiovascular: Rhythm Regular, No Murmur Respiratory: Normal Breath Sounds, No Rales, No Rhonchi, No Wheezing Gastrointestinal/Abdominal: Bowel Sounds (active), Soft, No Tenderness, No Distention, No Guarding Extremity: Bilateral: Atraumatic, Normal Color And Temperature, Normal ROM Neurological/Psych: Oriented x3, Normal Speech Gait: Steady ED Course And Treatment - Laboratory Results Result Diagrams: 03/07/18 10:55 03/07/18 10:55 Lab Interpretation: No Acute Changes O2 Sat by Pulse Oximetry: 100 (RA) Pulse Ox Interpretation: Normal - CT Scan/US Pelvic US Other Rad Studies (CT/US): Read By Radiologist, Radiology Report Reviewed CT/US Interpretation: Findings: LMP of 02/07/2018. Estimated gestational age by LMP of 4 weeks and 0 days. Positive urine test. Beta HCG level of 3316. Uterus: 9.1 x 5.4 x 6.6 centimeters. Heterogeneous echotexture. Anteverted. Cervix measures 3.2 centimeters. Intrauterine gestational sac measuring 7 millimeters, too small to adequately date. Yolk sac identified measuring 2.5 millimeters. No pole identified at this juncture. No heart rate identified at this juncture. Free fluid noted within the pelvic cul-de-sac. Right ovary: 2.9 x 1.8 x 2.1 centimeters. Normal flow. Left ovary: 3.5 x 1.8 x 3.8 centimeters. Normal flow. Heterogeneous corpus luteal cyst noted measuring 1.5 x 1.4 x 2.3 centimeters. Impression: Positive test. Intrauterine gestational sac noted measuring 7 millimeters. Too small to adequately date. Yolk sac identified. No pole identified at this juncture. Limited 1st trimester ultrasound for viability purposes only. Continued interval followup with serial ultrasound, serial HCG levels, and gynecological consultation would be helpful if clinically indicated. Probable left ovarian corpus luteal cyst. Medical Decision Making Medical Decision Making: Impression: Abdominal cramping, vaginal spotting Plan: -Blood work -Urinalysis -OB Ultrasound Progress: Labs reviewed. Ultrasound results discussed with patient, copy of report provided. On re-examination, patient is resting comfortably in no acute distress. Patient feels comfortable going home and will be discharged. Patient given follow up instructions. Instructed to return to ER if symptoms worsen or new symptoms arise. Disposition Counseled Patient/Family Regarding: Studies Performed, Diagnosis, Need For Followup - Disposition Referrals: [facility] [Outside] [facility] [Outside] [facility] [Outside] Disposition: HOME/ ROUTINE Disposition Time: 13:33 Condition: GOOD Additional Instructions: Your tests today show you are . Unable to date it is too early on ultrasound. 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 Instructions: Threatened Miscarriage (DC) Forms: [employer] (Slovenian) - POA Present On Arrival: None - Clinical Impression Clinical Impression: Threatened - PA / SENIOR MEDIA PLANNER / Resident Statement MD/DO has reviewed & agrees with the documentation as recorded. - Scribe Statement The provider has reviewed the documentation as recorded by the Scribe Maribel Sargent All medical record entries made by the Светланаibryan were at my direction and personally dictated by me. I have reviewed the chart and agree that the record accurately reflects my personal performance of the history, physical exam, medical decision making, and the department course for this patient. I have also personally directed, reviewed, and agree with the discharge instructions and disposition.
[2018-03-07 11:19] LABS: BASO % 0.7 % (0.0-2.0); EOS # 0.1 K/uL (0.0-0.7); EOS % 0.9 % (0.0-4.0); HEMOGLOBIN 11.3 g/dL (11.0-16.0); LYMPH # 2.2 K/uL (1.0-4.3); LYMPH % 36.3 % (20.0-40.0); MEAN CELL VOLUME 78.8 fL (81.0-99.0); MEAN CORPUSCULAR HEMOGLOBIN 25.9 pg (27.0-31.0); MEAN CORPUSCULAR HGB CONC 32.9 g/dL (33.0-37.0); MEAN PLATELET VOLUME 9.7 fL (7.2-11.7); MONO # 0.5 K/uL (0.0-0.8); MONO % 7.6 % (0.0-10.0); NEUT # 3.4 K/uL (1.8-7.0); NEUT % 54.5 % (50.0-75.0); RBC 4.34 Mil/uL (3.80-5.20); WHITE BLOOD COUNT 6.2 K/uL (4.8-10.8)
[2018-03-07 11:25] LABS: ALB/GLOB RATIO 1.5 (1.0-2.1); ALBUMIN 4.6 g/dL (3.5-5.0); ALT/SGPT 25 U/L (9-52); AST/SGOT 18 U/L (14-36); BLOOD UREA NITROGEN 9 mg/dL (7-17); CALCIUM 9.2 mg/dl (8.6-10.4); GFR AFRICAN-AMERICAN > 60; GFR NON-AFRICAN AMERICAN > 60
[2018-03-07] MEDS ORDERED: Potassium Chloride 20 mEq ER Tab PO STA (11:42)
[2018-03-07] MEDS ORDERED: Potassium Chloride 20 mEq ER Tab PO ONE (12:19)
--- NOTE | 2018-03-07 13:27 | US ---
Pelvic ultrasound History: . Cramping. Spotting. Comparison: None available. Technique: Real-time sonography was performed through the pelvis utilizing transabdominal and transvaginal techniques. Findings: LMP of 02/07/2018. Estimated gestational age by LMP of 4 weeks and 0 days. Positive urine test. Beta HCG level of 3316. Uterus: 9.1 x 5.4 x 6.6 centimeters. Heterogeneous echotexture. Anteverted. Cervix measures 3.2 centimeters. Intrauterine gestational sac measuring 7 millimeters, too small to adequately date. Yolk sac identified measuring 2.5 millimeters. No pole identified at this juncture. No heart rate identified at this juncture. Free fluid noted within the pelvic cul-de-sac. Right ovary: 2.9 x 1.8 x 2.1 centimeters. Normal flow. Left ovary: 3.5 x 1.8 x 3.8 centimeters. Normal flow. Heterogeneous corpus luteal cyst noted measuring 1.5 x 1.4 x 2.3 centimeters. Impression: Positive test. Intrauterine gestational sac noted measuring 7 millimeters. Too small to adequately date. Yolk sac identified. No pole identified at this juncture. Limited 1st trimester ultrasound for viability purposes only. Continued interval followup with serial ultrasound, serial HCG levels, and gynecological consultation would be helpful if clinically indicated. Probable left ovarian corpus luteal cyst.
[2018-03-07 13:42] VITALS: BP 117/81; PULSE 62; TEMP 98.7
[2018-03-07 13:46] VITALS: O2SAT 100
== END 2018-03-07 13:41 | disposition home or self-care (01) ==
LOC: C.ER 10:08
DX: O20.0 Threatened abortion (principal); Z3A.00 Weeks of gestation of pregnancy not specified

== ENCOUNTER 2018-05-04 03:05 | Emergency (ER) | payer OTHER ==
[2018-05-04 03:06] VITALS: BMI 33.1
[2018-05-04] MEDS ORDERED: Sodium Chloride 0.9% 1,000 ML IV ONE (03:43)
[2018-05-04] MEDS ORDERED: Sodium Chloride 0.9% 1,000 ML ONE (04:04)
[2018-05-04 04:09] LABS: BASO % 0.5 % (0.0-2.0); EOS # 0.1 K/uL (0.0-0.7); HEMOGLOBIN 11.9 g/dL (11.0-16.0); LYMPH # 2.4 K/uL (1.0-4.3); LYMPH % 32.2 % (20.0-40.0); MEAN CELL VOLUME 83.2 fL (81.0-99.0); MEAN CORPUSCULAR HEMOGLOBIN 27.7 pg (27.0-31.0); MEAN CORPUSCULAR HGB CONC 33.3 g/dL (33.0-37.0); MEAN PLATELET VOLUME 9.5 fL (7.2-11.7); MONO # 0.4 K/uL (0.0-0.8); MONO % 5.9 % (0.0-10.0); NEUT # 4.5 K/uL (1.8-7.0); NEUT % 60.4 % (50.0-75.0); RBC 4.29 Mil/uL (3.80-5.20); RED CELL DISTRIBUTION WIDTH 15.5 % (11.5-14.5); WHITE BLOOD COUNT 7.5 K/uL (4.8-10.8)
[2018-05-04 04:25] LABS: ALT/SGPT 23 U/L (9-52); AST/SGOT 15 U/L (14-36); BLOOD UREA NITROGEN 12 mg/dL (7-17); CALCIUM 8.9 mg/dl (8.6-10.4); GFR NON-AFRICAN AMERICAN > 60
[2018-05-04 04:49] LABS: ALB/GLOB RATIO 1.1 (1.0-2.1); ALBUMIN 3.7 g/dL (3.5-5.0)
--- NOTE | 2018-05-04 05:35 | C.PDOC ---
History Of Present Illness 33 year old female patient presents to the ER with c/o pelvic cramping and vaginal bleeding since x2 days. Patient reports she was [place] [facility] [place] and was told there was a threat for miscarriage. 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 Patient is currently 14 weeks , . Patient denies vomiting, diarrhea, fever and dysuria. Time Seen by Provider: 05/04/18 03:11 Chief Complaint (Nursing): Abdominal Pain History Per: Patient History/Exam Limitations: no limitations Onset/Duration Of Symptoms: Hrs Current Symptoms Are (Timing): Still Present Past Medical History Reviewed: Historical Data, Nursing Documentation, Vital Signs Vital Signs: Last Vital Signs Temp 97.5 F L 05/04/18 03:18 Pulse 73 05/04/18 03:18 Resp 16 05/04/18 03:18 BP 120/75 05/04/18 03:18 Pulse Ox 98 05/04/18 03:18 - Medical History PMH: Asthma - [facility] Procedures EXTRACTION OF PRODUCTS OF CONCEPTION, RETAINED, VIA OPENING (11/21/17) Family History: States: Unknown Family Hx - Social History Hx Tobacco Use: Yes Hx Alcohol Use: No Hx Substance Use: No (patient denies) - Immunization History Hx Tetanus Toxoid Vaccination: No Hx Influenza Vaccination: No Hx Pneumococcal Vaccination: No Review Of Systems Constitutional: Negative for: Fever Gastrointestinal: Positive for: Abdominal Pain (pelvic cramping). Negative for: Vomiting, Diarrhea Genitourinary: Positive for: Vaginal Bleeding. Negative for: Dysuria Physical Exam - Physical Exam Appears: Non-toxic, No Acute Distress Skin: Normal Color, Warm, Dry Head: Normacephalic Eye(s): bilateral: Normal Inspection, EOMI Chest: Symmetrical Cardiovascular: Rhythm Regular Respiratory: Normal Breath Sounds Gastrointestinal/Abdominal: Soft, Tenderness (suprapubic tenderness), No Distention, No Guarding, No Rebound Back: No CVA Tenderness Neurological/Psych: Oriented x3, Normal Speech ED Course And Treatment - Laboratory Results Result Diagrams: 05/04/18 04:05 05/04/18 04:05 O2 Sat by Pulse Oximetry: 98 (RA) Pulse Ox Interpretation: Normal - CT Scan/US OB Other Rad Studies (CT/US): Read By Radiologist, Radiology Report Reviewed CT/US Interpretation: Name:REBEKAH REESE Exam Date:May 04, 2018 5:37:19 AM EDT. Modality Type:SD\US\MD\SR. D escription:US - OB WITH IMAGE DOC LIMITED (HEART BEAT PLACENTAL LOC POS AMNIOTIC FLUID VOL). Gender:F Laterality:Not applicable. :87 Referring Physician:ADITYA WAYNE MD. EXAM: US Obstetrical, Complete >14 weeks. CLINICAL HISTORY: Pelvic pain and vag bleeding. TECHNIQUE: Transabdominal imaging of the maternal pelvis and a > 14 week gestation with image documentation. COMPARISON: None provided. FINDINGS: FETUS: There is a single living intrauterine gestation, estimated gestational age 14 w 5 d. POSITION: position is breeech. HEART RATE: The heart rate is 148 beats per minute. BIOMETRICS: Based on composite biometry, the estimated gestational age by ultrasound is 14 w 5 d. ANATOMIC SURVEY: Limited. PLACENTA: The placenta is posterior. Sonographic evidence for complete previa. CERVIX: Closed. Unremarkable as visualized. IMPRESSION: Single viable intrauterine . Placenta previa. Progress Note: Impression: pelvic cramp and vaginal bleeding. plans: -- chem labs. -- blood work. -- IV fluids. 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 Currently also too early for cerclage. Disposition Counseled Patient/Family Regarding: Studies Performed, Diagnosis, Need For Followup - Disposition Referrals: [facility] [Outside] Disposition: HOME/ ROUTINE Disposition Time: 06:45 Condition: STABLE Additional Instructions: FOLLOW UP WITH GUIDE DOG TRAINER/GY AT [address] [place] [address] [facility] offers comprehensive obstetrical and gynecology services to women in the [facility] community. We see over 22,000 visits a year with about 1,500 Obstetric patients. We offer full array of women's services by our time stamp assembler attendings and residents. Women are seen by the same physician for all of their general services and are seen by specialists as required. Located in the [facility] is a Women and Children (WIC) program which is operated under the supervision of Leonardo desir and serves the families of [facility]. For more Information about the [facility] program, contact [phone]. To reach the [facility], call [phone]. RETURN TO ER IF SYMPTOMS WORSEN Prescriptions: Albuterol HFA [Ventolin HFA 90 mcg/actuation (8 g)] 0.09 mg IH Q4 PRN #1 puff PRN Reason: Wheezing Instructions: Placenta Previa, Asthma and Forms: [employer] (Ukrainian) Print Language: SURINAMESE - Clinical Impression Clinical Impression: Placenta previa - Scribe Statement The provider has reviewed the documentation as recorded by the Scribe Hess Do Provider Attestation: All medical record entries made by the Scribe were at my direction and personally dictated by me. I have reviewed the chart and agree that the record accurately reflects my personal performance of the history, physical exam, medical decision making, and the department course for this patient. I have also personally directed, reviewed, and agree with the discharge instructions and d isposition.
[2018-05-04] MEDS ORDERED: Albuterol 0.083% Inhal Sol (2.5 mg/3 mL) UD IH STA (06:40)
[2018-05-04] MEDS ORDERED: Albuterol 0.083% Inhal Sol (2.5 mg/3 mL) UD ONE (06:44)
[2018-05-04 07:09] VITALS: BP 105/66; PULSE 82; RESP 18; TEMP 98.6; O2SAT 97
--- NOTE | 2018-05-04 10:00 | US ---
Indication: Pelvic pain, bleeding Comparison: 1st trimester ultrasound performed 03/07/18 Technique: OB , limited Findings: Single fetus in breech presentation. Posterior placenta. Sonographic evidence for complete previa. Cervix length measures approximately 3.1 cm. Fetus has a composite sonographic age of 14 weeks 5 days. This calculation is based on the biparietal diameter, head circumference, abdominal circumference, and femur length. There is heart motion which measured 148 BPM. Bilateral ovaries were not visualized. Impression: Single intrauterine gestation. Fetus in breech presentation. Currently, there is sonographic evidence of placenta previa. Due to placental trophotropism, the diagnosis of the placenta previa is generally not made before 20 weeks gestation. Follow-up ultrasound is recommended. Advise an anomaly screen at 16-18 weeks gestational age. Preliminary impression was provided by [facility].
== END 2018-05-04 07:10 | disposition home or self-care (01) ==
LOC: C.ER 03:05
DX: O44.12 Complete placenta previa with hemorrhage, second trimester (principal); Z3A.14 14 weeks gestation of pregnancy
CPT/HCPCS: 76815; 80053; 84702; 85025; 86850; 86900; 94640; 96360; 99284; J7030

== ENCOUNTER 2018-05-31 14:39 | Emergency (ER) | payer OTHER ==
[2018-05-31 14:39] VITALS: BMI 33.1
[2018-05-31 14:58] VITALS: RESP 18
--- NOTE | 2018-05-31 15:19 | C.PDOC ---
History Of Present Illness 33 y/o female, , 17 weeks gestation, presents to ED for evaluation of brown vaginal discharge associated with minimal abdominal cramping since last night. Notes she has history of placenta previa. Denies fever, chills, or other c omplaints. Time Seen by Provider: 05/31/18 15:01 Chief Complaint (Nursing): Female Genitourinary History Per: Patient History/Exam Limitations: no limitations Past Medical History Reviewed: Historical Data, Nursing Documentation, Vital Signs Vital Signs: Last Vital Signs Temp 97.9 F 05/31/18 14:55 Pulse 90 05/31/18 14:55 Resp 18 05/31/18 14:55 BP 117/75 05/31/18 14:55 Pulse Ox 99 05/31/18 14:55 - Medical History PMH: Asthma Denies: Seizures - [facility] Procedures EXTRACTION OF PRODUCTS OF CONCEPTION, RETAINED, VIA OPENING (11/21/17) Family History: States: Unknown Family Hx - Social History Hx Tobacco Use: Yes Hx Alcohol Use: No Hx Substance Use: No (patient denies) - Immunization History Hx Tetanus Toxoid Vaccination: No Hx Influenza Vaccination: No Hx Pneumococcal Vaccination: No Review Of Systems Except As Marked, All Systems Reviewed And Found Negative. Constitutional: Negative for: Fever, Chills Cardiovascular: Negative for: Chest Pain Respiratory: Negative for: Shortness of Breath Gastrointestinal: Positive for: Abdominal Pain. Negative for: Nausea, Vomiting Genitourinary: Positive for: Vaginal Discharge. Negative for: Dysuria, Frequency Musculoskeletal: Negative for: Back Pain Physical Exam - Physical Exam Appears: Non-toxic, No Acute Distress Skin: Normal Color, Warm, Dry Head: Atraumatic, Normacephalic Eye(s): bilateral: Normal Inspection Oral Mucosa: Moist Neck: Normal ROM, Supple Cardiovascular: Rhythm Regular Respiratory: Normal Breath Sounds, No Rales, No Rhonchi, No Wheezing Gastrointestinal/Abdominal: Soft, No Tenderness, No Guarding, No Rebound, Other (gravid abdomen) Back: No CVA Tenderness Extremity: Normal ROM Neurological/Psych: Oriented x3, Normal Speech ED Course And Treatment - Laboratory Results Result Diagrams: 05/31/18 16:12 05/31/18 16:12 O2 Sat by Pulse Oximetry: 99 (RA) Pulse Ox Interpretation: Normal Medical Decision Making Medical Decision Making: ro miscarriage Plan: Blood work Urinalysis ultrasound after us, pt refuses to wait in er for results of ultasound. advised her risk. states "she needs to get home". The patient declines to have further medical evaluation and treatment and wishes to leave the Emergency Department. This action is against my medical advice to the patient, and with informed refusal. The patient was told that evaluation and treatment are necessary and a full explanation of the rationale was given. The risks of leaving were explained to the patient and include, but are not limited to, worsening of known or currently unknown conditions, permanent disability and from undiagnosed or untreated conditions The patient has the capacity to make this informed decision and understands the clinical situation and my explanation of the risks of leaving. The patient voluntarily accepts these risks, and a signed AMA form documenting our conversation was obtained. The patient was given the opportunity to ask questions and reconsider. The patient was encouraged to return to the Emergency Department at any time for further care. Disposition - Disposition Disposition: AGAINST MEDICAL ADVICE Disposition Time: 18:00 Condition: UNKNOWN Additional Instructions: return to er with worsneing symptoms or concerns. Instructions: Threatened Miscarriage, Bleeding With , Leaving Against Medical Advice Forms: [employer] (Cymraes) - Clinical Impression Clinical Impression: Left against medical advice, Threatened miscarriage - Scribe Statement The provider has reviewed the documentation as recorded by the Scribe KP All medical record entries made by the Scribe were at my direction and personally dictated by me. I have reviewed the chart and agree that the record accurately reflects my personal performance of the history, physical exam, medical decision making, and the department course for this patient. I have also personally directed, reviewed, and agree with the discharge instructions and disposition.
[2018-05-31 16:15] LABS: BASO % 0.3 % (0.0-2.0); EOS # 0.1 K/uL (0.0-0.7); EOS % 0.6 % (0.0-4.0); HEMOGLOBIN 12.1 g/dL (11.0-16.0); LYMPH # 2.1 K/uL (1.0-4.3); LYMPH % 22.3 % (20.0-40.0); MEAN CORPUSCULAR HEMOGLOBIN 28.3 pg (27.0-31.0); MEAN CORPUSCULAR HGB CONC 33.6 g/dL (33.0-37.0); MEAN PLATELET VOLUME 9.2 fL (7.2-11.7); MONO # 0.5 K/uL (0.0-0.8); MONO % 5.8 % (0.0-10.0); NEUT # 6.7 K/uL (1.8-7.0); RBC 4.27 Mil/uL (3.80-5.20); RED CELL DISTRIBUTION WIDTH 13.8 % (11.5-14.5); WHITE BLOOD COUNT 9.4 K/uL (4.8-10.8)
[2018-05-31 16:26] LABS: HCG,QUALITATIVE URINE POSITIVE (NEGATIVE)
[2018-05-31 16:26] LABS: INR 1.1; PROTHROMBIN TIME 11.8 SECONDS (9.7-12.2)
[2018-05-31 16:27] LABS: ALB/GLOB RATIO 1.2 (1.0-2.1); ALBUMIN 3.9 g/dL (3.5-5.0); ALT/SGPT 30 U/L (9-52); AST/SGOT 19 U/L (14-36); BLOOD UREA NITROGEN 9 mg/dL (7-17); CALCIUM 9.1 mg/dl (8.6-10.4); GFR NON-AFRICAN AMERICAN > 60
[2018-05-31 16:34] LABS: SQUAMOUS EPITHIAL 11 /hpf (0-5); URINE BACTERIA RARE (<OCC); URINE BILIRUBIN NEGATIVE (NEGATIVE); URINE BLOOD NEGATIVE (NEGATIVE); URINE CLARITY Clear (Clear); URINE COLOR Yellow (YELLOW); URINE GLUCOSE (UA) NORMAL (Normal); URINE LEUKOCYTE ESTERASE NEG Leu/uL (Negative); URINE PROTEIN NEGATIVE (NEGATIVE); URINE UROBILINOGEN NORMAL mg/dL (0.2-1.0)
[2018-05-31 18:04] VITALS: BP 121/74; PULSE 81; TEMP 98.7
[2018-05-31 18:12] VITALS: O2SAT 99
--- NOTE | 2018-06-02 10:34 | US ---
Indication: Vaginal bleeding and Comparison: None available Technique: Real-time ultrasound was performed through the pelvis. Findings: There is a single living fetus in breech presentation. Amniotic fluid volume is within normal limits. Anterior left placenta. Currently, there is evidence of placenta previa. Due to placental trophotropism, the diagnosis of the placenta previa is generally not made before 20 weeks gestation. Follow-up ultrasound is recommended. There are no adnexal masses or cysts evident. Cervix measures approximately 3.5 cm in length. 1.2 x 1 x 1 cm small hypoechoic region noted within the placenta, possibly small venous valadez. Measurements and calculations: Fetus has a composite sonographic age of 17 weeks 6 days. This calculation is based on the biparietal diameter, head circumference, abdominal circumference, and femur length. Estimated heart rate 135 beats per min. Estimated weight 207.73 g. Impression: Single living fetus with a composite sonographic age of 17 weeks 6 days. Estimated heart rate 135 beats per min. Anterior left placenta. Currently, there is evidence of placenta previa. Due to placental trophotropism, the diagnosis of the placenta previa is generally not made before 20 weeks gestation. Follow-up ultrasound is recommended. 1.2 x 1 x 1 cm small hypoechoic region noted within the placenta, possibly small venous valadez. The study was performed for the emergent evaluation of vaginal bleeding, and the whole anatomic survey of the fetus was not performed. This should be performed on an outpatient elective basis as clinically warranted. Preliminary impression was provided by [employer].
== END 2018-05-31 18:16 | disposition left against medical advice (07) ==
LOC: C.ER 14:39
DX: O20.0 Threatened abortion (principal); Z3A.17 17 weeks gestation of pregnancy

== ENCOUNTER 2018-09-27 21:00 | Emergency (ER) | payer OTHER ==
[2018-09-27 21:01] VITALS: BMI 33.1
[2018-09-27 21:34] VITALS: O2SAT 99
[2018-09-28 00:42] LABS: SQUAMOUS EPITHIAL 4 /hpf (0-5); URINE BACTERIA RARE (<OCC); URINE BILIRUBIN NEGATIVE (NEGATIVE); URINE BLOOD NEGATIVE (NEGATIVE); URINE CLARITY Hazy (Clear); URINE COLOR Yellow (YELLOW); URINE GLUCOSE (UA) NORMAL (Normal); URINE LEUKOCYTE ESTERASE NEG Leu/uL (Negative); URINE PROTEIN NEGATIVE (NEGATIVE); URINE UROBILINOGEN NORMAL mg/dL (0.2-1.0)
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
[2018-09-28 15:38] VITALS: BP 98/56; PULSE 76; RESP 18; TEMP 97.2
== END 2018-09-28 08:22 | disposition home or self-care (01) ==
LOC: C.EROB 21:00 → C.ER 21:00 → C.EROB 09-28 08:22
DX: S09.93XA Unspecified injury of face, initial encounter (principal); S39.91XA Unspecified injury of abdomen, initial encounter; Y08.89XA Assault by other specified means, initial encounter; O26.93 Pregnancy related conditions, unspecified, third trimester; Z3A.34 34 weeks gestation of pregnancy

== ENCOUNTER 2018-10-28 07:20 | Inpatient (IN) | payer MEDICAID ==
[2018-10-28 08:05] VITALS: BMI 37.5
[2018-10-28] MEDS ORDERED: Lactated Ringer's 1,000 ML IV ONE (08:05)
[2018-10-28 08:55] LABS: BARBITURATES, UR NEGATIVE (NEGATIVE); BENZODIAZEPINES, UR NEGATIVE (NEGATIVE); OPIATES, UR NEGATIVE (NEGATIVE)
[2018-10-28 09:02] LABS: PHENCYCLIDINE, UR POSITIVE (NEGATIVE)
[2018-10-28 09:10] LABS: BASO % 0.3 % (0.0-2.0); EOS % 0.3 % (0.0-4.0); HEMOGLOBIN 12.7 g/dL (11.0-16.0); LYMPH % 23.4 % (20.0-40.0); MEAN CORPUSCULAR HGB CONC 33.2 g/dL (33.0-37.0); MEAN PLATELET VOLUME 11.1 fL (7.2-11.7); MONO # 0.5 K/uL (0.0-0.8); MONO % 6.3 % (0.0-10.0); NEUT % 69.7 % (50.0-75.0); NRBC % 0.1 % (0.0-2.0); RBC 4.38 Mil/uL (3.80-5.20); RED CELL DISTRIBUTION WIDTH 13.9 % (11.5-14.5); WHITE BLOOD COUNT 8.6 K/uL (4.8-10.8)
[2018-10-28 09:13] LABS: MEAN CELL VOLUME 87.1 fL (81.0-99.0)
[2018-10-28] MEDS ORDERED: Lactated Ringer's 1,000 ML IV SCH (09:15)
[2018-10-28 09:40] LABS: ALB/GLOB RATIO 1.1 (1.0-2.1); ALBUMIN 3.5 g/dL (3.5-5.0); ALT/SGPT 25 U/L (9-52); AST/SGOT 30 U/L (14-36); BLOOD UREA NITROGEN 9 mg/dL (7-17); CALCIUM 9.4 mg/dl (8.6-10.4); GFR NON-AFRICAN AMERICAN > 60
[2018-10-28] MEDS ORDERED: Fentanyl/Bupivacaine HCl 250 ML EPI ONE (09:54)
[2018-10-28] MEDS ORDERED: Oxytocin 30 UNIT in NS 500 ml 30 UNITS/500 ML BAG IV SCH (10:30)
[2018-10-28] MEDS ORDERED: Oxytocin 30 UNIT in NS 500 ml 30 UNITS/500 ML BAG IV ONE (10:50)
[2018-10-28] MEDS ORDERED: Oxycodone/Acetaminophen 5/325 mg Tab PO PRN ×3 (12:13→15:12)
--- NOTE | 2018-10-28 14:16 | OBHP ---
Datetime: 10/28/2018 08:00 IP Adm Impression: Term, intrauterine ; Active labor; Intact Membranes IP Admit Plan: Admit to unit; Initiate labor protocol Admit Comment, IP Provider: 33 yo female with an IUP at 38.6 weeks and presented with c/o o f uterine contractions for the past 2 hours without LOF, VB or VD and admits to adequate FM. Denies a ny complications. GBS Negative. PMHx: Negative PSHx: 2 D_C's for miscarriages and 2 TOP's Meds PNV Allergies PCN Sociald Hx Negative x 3 PE as noted above A/P Term Active labor GBS Negative PNC at [facility] NST Reactive Admit for anticipated vaginal delivery Admit labs ordered and WNL UA negative Pelvic Type - PN: Adequate Extremities - PN: Normal Abdomen - PN: Normal Back - PN: Normal Breast - PN: Not Done Lungs - PN: Normal Heart - PN: Normal Thyroid - PN: Normal Neurologic - PN: Normal HEENT - PN: Normal General - PN: Normal Presentation-Admit: Vertex FHR - Baseline A Provider: 120 Membranes, Provider: Intact Contraction Comments Provider: 3-4 Gestation - Est Wks by US: 38.6 IP Hx Assessment: The History has been Reviewed and is Current EGA AdmitDate IP: 38.6 Vital Signs Provider: Reviewed IP Indication for Induction: Not Applicable IP Chief Complaint: Uterine contractions NICHD Variability Prov Fetus A: Moderate 6-25bpm NICHD Accel Fetus A IP Provider: 10X10 FHR Category Provider Fetus A: Category I NICHD Decel Fetus A IP Provider: None Dilatation, Provider: 3-4 Effacement, Provider: 80 Station, Provider: -2 Genitourinary Exam: Normal DTRs - PN: Normal Datetime: 09/27/2018 22:00 Comments, ACOG Physical Exam: Sore spot on her face and Left abdomen
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
[2018-10-28 16:10] LABS: BARBITURATES, UR NEGATIVE (NEGATIVE); BENZODIAZEPINES, UR NEGATIVE (NEGATIVE); OPIATES, UR NEGATIVE (NEGATIVE)
[2018-10-28 16:24] LABS: PHENCYCLIDINE, UR POSITIVE (NEGATIVE)
[2018-10-28] MEDS: Simethicone 80 mg Chewtab PO SCH ×2 (18:36→21:30)
[2018-10-29 08:36] LABS: MEAN CELL VOLUME 87.8 fL (81.0-99.0); MEAN CORPUSCULAR HEMOGLOBIN 29.4 pg (27.0-31.0); MEAN CORPUSCULAR HGB CONC 33.4 g/dL (33.0-37.0); MEAN PLATELET VOLUME 11.2 fL (7.2-11.7); RBC 3.54 Mil/uL (3.80-5.20); RED CELL DISTRIBUTION WIDTH 14.2 % (11.5-14.5); WHITE BLOOD COUNT 10.7 K/uL (4.8-10.8)
[2018-10-29 08:50] LABS: HEMOGLOBIN 10.4 g/dL (11.0-16.0)
[2018-10-29] MEDS ORDERED: Prenatal Multivit/Folic Acid/Iron Tab PO SCH (10:00)
[2018-10-29] MEDS: Simethicone 80 mg Chewtab PO SCH ×4 (10:12→21:57)
[2018-10-29] MEDS: Prenatal Multivit/Folic Acid/Iron Tab PO SCH (10:12)
[2018-10-29] MEDS: Benzocaine/Menthol 20%-0.5% Topical Spray (60 ml) TOP SCH ×3 (14:55→21:59)
[2018-10-29] MEDS: Hydrocortisone 1% Cream (30 GM) TOP SCH (17:46)
--- NOTE | 2018-10-30 00:39 | OBPPN ---
Datetime: 10/29/2018 11:54 PP Pain Prov: Within normal limits PP Nausea Prov: Denies PP Flatus Prov: Yes PP BM Prov: Yes PP Breasts Prov: Not Done PP Heart Prov: Normal PP Lungs Prov: Normal PP Abdomen/Uterus Prov: Normal PP Lochia Prov: Normal PP Vulva/Perineum Prov: Not Done PP CVA Tenderness Prov: Normal PP Extremities Prov: Normal PP Progress Prov: Not Applicable PP Comments Phys Exam Prov: Constitutional: Well, Non-toxic, No Acute Distress Head Exam: ATRAUMATIC, NORMOCEPHALIC Respiratory Exam: Clear to Ausculation Bilateral, NORMAL BREATHING PATTERN Cardiovascular Exam: RRR. absent: Murmur GI _ Abdominal Exam: Soft, No Tenderness, Normal Bowel Sounds Extremities Exam: Normal Capillary Refill, 2+ Edema BL Neurological Exam: Alert, Awake, CN II-XII Intact, Oriented x3 Psychiatric exam: Normal Affect, Normal Mood Skin Exam: Dry, Intact, Warm PP Impression Prov: Normal progression PP Plan Prov: Continue present management PP Progress Note Prov: Patient is a 33F Post day #1 s/p Vaginal delivery w/ epidural and w/ episotomy on 10/28 afternoon No acute events reported overnight; patient reports she is doing well. Reported that she is exclus ively bottle feeding. Reports BM, flatus, urination. Reports mild abdominal discomfort however tolera kyung diet well. Adequately hydrated; ambulates within the room without issue. Pain well controlled; re quired only PRN motrin. Patient reports mild discomfort from episotomy dermoplast, hydrocortisone cre am, tucks wipe and sitz bath ordered. Of note: Patient had a elevated PCP screen on urine tox; repeat screen confirmed initial result. B iron was also screened for PCP; Baby was found to be PCP+ Patient was notified that social work would be contacted. ROS: Denies Fevers, Chills, Chest Pain, SOB, Abd Pain, N/V/D/C, Urinary discomfort VSS, Labs wnl, PE wnl; mild abdominal discomfort to palpation; 2+ pitting edema BL LE A/P: 33F s/p Vaginal delivery w/ epidural and w/ episotomy on 10/28 Post day #1 Continue post management: Analgesia Stool softeners Encourage Ambulation Encourage Hydration Encourage breast feeding Follow up w/ social sciences instructor Patient was seen, examined, and discussed w/ attending Dr. Konrad Street DO PGY1 - Internal Medicine Health Therapist Pt seen and examined with Dr. Street and agree with his findings and POC. Vital Signs Provider PP: Reviewed; Within Normal Limits
[2018-10-30] MEDS: Benzocaine/Menthol 20%-0.5% Topical Spray (60 ml) TOP SCH ×3 (02:37→13:20)
[2018-10-30 02:39] VITALS: O2SAT 100
[2018-10-30 09:03] VITALS: RESP 18
[2018-10-30] MEDS: Hydrocortisone 1% Cream (30 GM) TOP SCH (09:35)
[2018-10-30] MEDS: Simethicone 80 mg Chewtab PO SCH ×3 (09:42→13:20)
[2018-10-30] MEDS: Prenatal Multivit/Folic Acid/Iron Tab PO SCH (09:42)
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
--- NOTE | 2018-10-30 18:24 | OBPPN ---
Datetime: 10/30/2018 18:13 PP Pain Prov: Within normal limits PP Nausea Prov: Denies PP Flatus Prov: Yes PP BM Prov: Yes PP Breasts Prov: Normal PP Heart Prov: Normal PP Lungs Prov: Normal PP Abdomen/Uterus Prov: Normal PP Lochia Prov: Normal PP Vulva/Perineum Prov: Not Done PP CVA Tenderness Prov: Normal PP Extremities Prov: Normal PP C/S Incision Prov: Not Applicable PP Progress Prov: Not Applicable PP Comments Phys Exam Prov: Abdomen: Obese. Soft. Non distended. Fundus firm, mobile, non tender 1 F B above umbilicus. Mild lochia rubra All other systems reviewed and are negative PP Impression Prov: Normal progression PP Plan Prov: Discharge PP Progress Note Prov: Patient seen, evaluated and examined at approximately 1500 hours. Received i n room 453, many family members present. Bottlefeeding exclusively. Ambulating and voiding without di ficulty. Denies nausea, vomiting; headaches, dizziness, lightheadenss, chest pain. P.E.: as above. mildly obese, in NAD. Awake, alert, oriented to time, person and place. Pleasant a nd cooperative Assessment: PPD#2, 33 y.o. [id number], S/P .. Afebrile, vital signs stable. D/W patient contraceptio n options; undecided. PCP(+) - awaiting DYFS. Mild anemia - asymptomatic. Patient is clinically stabl e. Plan: 1) Discharge home 2) NPV x 6 weeks 3) Continue vitamins, iron supplementaiton - QD 4) F/U clinic in 6 weeks Vital Signs Provider PP: Reviewed; Within Normal Limits
[2018-10-30 23:34] VITALS: BP 112/59; PULSE 84; TEMP 97.6
== END 2018-10-30 19:32 | disposition home or self-care (01) | DRG 373 ==
LOC: C.EROB 07:20 → C.4D 07:43 → C.4M 17:05
PROVIDERS: ADMIT Obstetrics & Gynecology; ATTEND Obstetrics & Gynecology
PROC: 0W8NXZZ Division of Female Perineum, External Approach (ICD-10-PCS; principal; 2018-10-28)
PROC: 10E0XZZ Delivery of Products of Conception, External Approach (ICD-10-PCS; 2018-10-28)
DX: O99.02 Anemia complicating childbirth (principal); F16.10 Hallucinogen abuse, uncomplicated; O99.324 Drug use complicating childbirth; O99.214 Obesity complicating childbirth; Z68.37 Body mass index [BMI] 37.0-37.9, adult; Z3A.38 38 weeks gestation of pregnancy; Z37.0 Single live birth; Z30.09 Encounter for other general counseling and advice on contraception